=== PATIENT | female | born 1995 | race Caucasian/White ===

== ENCOUNTER 2018-08-12 15:30 | Outpatient (REF) | payer OTHER, SELFPAY | END 2018-08-12 15:50 | LOC: NCHCN 15:30 | PROVIDERS: PCP Physician Assistant Medical; Visit Provider Specialist/Technologist Athletic Trainer | DX: J02.9 Acute pharyngitis, unspecified (principal) | CPT/HCPCS: 87070 ==

== ENCOUNTER 2018-11-30 11:39 | Emergency (ER) | payer OTHER, SELFPAY ==
[2018-11-30 11:50] VITALS: BP 105/63; PULSE 92; RESP 18; TEMP 36.4; O2SAT 98
--- NOTE | 2018-11-30 12:32 | ED.GENADUL_ITS ---
Discharge Plan Disposition Patient Disposition: HOME Discharge Details Chief Complaint: Sorethroat Clinical Impression: URI (upper respiratory infection), Acute streptococcal pharyngitis Reason For Visit: swollen throat Primary Care Provider: Mane Story ED Provider: Enrique Locke Home Meds and New Rx's Prescriptions: Continued mesalamine [Lialda] 1.2 GM tablet,delayed release (DR/EC) 1.2 gm PO HS RF: 0 etonogestrel-ethinyl estradiol [NuvaRing] 1 EACH ring 1 ea VG once monthly Qty: 3 RF: 4 Discharge Instructions Instructions: Strep Throat (ED), Tonsillitis (ED) Additional Instructions: Please use over the counter throat lozenges. Follow-up with your doctor. Call Sunday to arrange follow-up. Return to the ER immediately if you have any worsening or new concerning symptoms. Stand Alone Forms: Work Release Referrals: Mane Stoyr PA [Primary Care Provider] - Discharge Data Discharge Date/Time-TO BE ENTERED AT DEPARTURE: 11/30/18 13:26 Medical Decision Making 12:39 --23-year-old female with history of ulcerative colitis controlled with mesalamine, here with posterior oropharyngeal swelling and discomfort since this morning. Recent cough and sinus congestion. Airway intact. Mild swelling noted on exam with erythema. Suspect pharyngitis versus irritation related to upper respiratory tract infection. Plan to treat with decadron PO. Rapid strep test pending. 13:19 --rapid strep test positive. Patient has allergy to amoxicillin noted to be diarrhea. Plan to treat with clindamycin. Initial dose was administered here. I encouraged her to follow-up with her primary care physician. Usual and customary discharge instructions were provided. HPI General Mode of arrival: ambulatory . Date/Time Provider Initiated Documentation: 11/30/18 12:20 . Limitations to Documentation: no limitations . Information obtained by: patient . HPI Narrative: 23-year-old female with history of ulcerative colitis presents with chief complaint of throat discomfort. Patient notes some mild discomfort and feeling like her throat is swollen. This started this morning and has been persistent. Symptoms are moderate. Discomfort is bilateral. She has associated runny nose as well as cough over the past few days. She does note that when she was coughing she coughed up a few specks of blood recently. No shortness of breath. No chest pain. No recent abdominal pain. Related Data Home Medications Medication Instructions Recorded Confirmed mesalamine [Lialda] 1.2 gm PO HS 01/16/17 04/10/18 etonogestrel-ethinyl estradiol 1 ea VG once monthly #3 vag.ring 06/27/18 [NuvaRing] fluconazole 150 mg tablet 150 mg PO ONCE #1 tab 12/12/18 12/12/18 metronidazole 500 mg tablet 500 mg PO BID #14 tab 12/12/18 12/12/18 Previous Rx's Medication Instructions Recorded etonogestrel-ethinyl estradiol 1 ea VG once monthly #3 vag.ring 06/27/18 [NuvaRing] fluconazole 150 mg tablet 150 mg PO ONCE #1 tab 12/12/18 metronidazole 500 mg tablet 500 mg PO BID #14 tab 12/12/18 Allergies Allergy/AdvReac Type Severity Reaction Status Date / Time amoxicillin [Amoxicillin] AdvReac Intermediate Diarrhea Unverified 12/12/18 08:05 General Stated Complaint: Sorethroat MCKAY: 3 Review of Systems Constitutional Denies fever(s) and Denies headache(s) ENT Reports as per HPI, Denies headache(s), Denies hoarseness, Denies mouth pain, Reports nasal congestion, Reports nasal obstruction, Denies neck pain, Reports post nasal drip and Denies tongue swelling Cardiovascular Denies chest pain Respiratory Reports as per HPI Musculoskeletal Denies neck pain Neurologic Denies headache(s) Allergic/Immunologic Denies tongue swelling PFSH Medical History Obesity, Class III, BMI 40-49.9 (morbid obesity) PCOS (polycystic ovarian syndrome) Trichomonas vaginalis (TV) infection Social History Smoking/Tobacco Use Status: Never Exam Const General: cooperative and no acute distress HENMT Head: normocephalic and atraumatic Mouth: moist mucous membranes Throat: uvula midline, no peritonsillar masses, posterior oropharynx abnormal edema and erythema; no cobblstoning and no exudates, postnasal drainage and uvular edema (mild) Other: no trismus, nl voice Eyes Conjunctivae: normal conjunctivae Sclera: normal sclerae EOM: EOM intact bilaterally Neck Neck: trachea midline and supple Resp Auscultation: clear to auscultation bilaterally, no rales, no rhonchi and no wheezes Cardio Jugular venous pressure: no JVD Rate: regular rate and not tachycardic Rhythm: regular rhythm Skin General skin exam: no rashes or lesions noted Neuro General: alert, awake, oriented x3 and tone normal Extrem General: no edema Psych Appearance: grossly normal Mental Status: mental status grossly normal Speech and Movement: speech and movement normal Course Vital Signs Temperature 36.4 C L 11/30/18 11:50 Pulse 92 H 11/30/18 11:50 Respiratory Rate 18 11/30/18 11:50 Blood Pressure 105/63 11/30/18 11:50 Pulse Oximetry 98 11/30/18 11:50 Temperature 36.4 C L 11/30/18 11:50 Temperature Source Temporal Artery Scan 11/30/18 11:50 Pulse 92 H 11/30/18 11:50 Respiratory Rate 18 11/30/18 11:50 Respiratory Effort 11/30/18 11:56 Blood Pressure 105/63 11/30/18 11:50 Blood Pressure Position Sitting 11/30/18 11:50 Pulse Oximetry 98 11/30/18 11:50 Oxygen Delivery Method Room Air 11/30/18 11:50 Oxygen Flow Rate 0 11/30/18 11:50 Pain Level 0 11/30/18 11:50 Lab/Test Results Lab/Test Results: POC- Test(urine) Negative
[2018-11-30] MEDS: Dexamethasone 10 MG/ML VIAL IVP (12:47)
[2018-11-30] MEDS: Clindamycin 150 MG CAP 300 MG PO (13:21)
== END 2018-11-30 13:26 | disposition home or self-care (01) ==
PROVIDERS: Emergency Provider Student in an Organized Health Care Education/Training Program; PCP Physician Assistant Medical
DX: J02.0 Streptococcal pharyngitis (principal)
CPT/HCPCS: 81025; 87880; 96374; 99284; J1100

== ENCOUNTER 2018-12-12 11:44 | Outpatient (REF) | payer OTHER, SELFPAY ==
[2018-12-13 14:54] LABS: Chlamydia Result Negative; GC Result Negative; Specimen Description CERVIX
== END 2018-12-12 12:04 ==
LOC: LBN 11:44
PROVIDERS: PCP Physician Assistant Medical; Visit Provider Obstetrics & Gynecology Gynecology
DX: N76.0 Acute vaginitis (principal); Z11.3 Encounter for screening for infections with a predominantly sexual mode of transmission
CPT/HCPCS: 87491; 87591

== ENCOUNTER 2019-04-01 08:51 | Emergency (ER) | payer OTHER, SELFPAY ==
[2019-04-01 08:57] VITALS: BP 132/80; PULSE 106; RESP 16; TEMP 36.8; O2SAT 98
--- NOTE | 2019-04-01 08:57 | W.ED.GENAD ---
Discharge Plan Disposition Patient Disposition: HOME Condition: Fair Discharge Details Chief Complaint: Sorethroat Clinical Impression: URI (upper respiratory infection), Acute pharyngitis, Strep pharyngitis Primary Care Provider: Mane Story ED Provider: Abena Huggins Home Meds and New Rx's Prescriptions: New lidocaine HCl [Lidocaine Viscous] 2 % solution 15 ml MM BID-QID PRN (Reason: mouth pain) Qty: 100 RF: 0 benzonatate [Tessalon Perles] 100 mg capsule 100 mg PO TID PRN (Reason: cough) Qty: 14 RF: 0 clindamycin HCl 300 mg capsule 300 mg PO TID Qty: 30 RF: 0 Continued mesalamine [Lialda] 1.2 GM tablet,delayed release (DR/EC) 1.2 gm PO HS RF: 0 NuvaRing 1 EACH ring 1 ea VG once monthly Qty: 3 RF: 4 Discharge Instructions Instructions: Pharyngitis (ED), Upper Respiratory Infection (ED) Additional Instructions: Your rapid strep testing was positive. However, as you are carrier if this may be misleading. We have decided on the watch and wait approach. You have been prescribed clindamycin to begin if symptoms are not improving or worsen over the next 48 hours. If you begin the antibiotics, please take the entire course even if symptoms improve. Please encourage hydration. Tylenol and ibuprofen as needed for discomfort. Viscous lidocaine may be of benefit to help with the sore throat, please take as prescribed. Tessalon Perles as prescribed to help with cough. You may use honey and/or lozenges to help with sore throat and cough. If you develop difficulty breathing, inability to stay hydrated, shortness of breath or the new/worsening symptoms please seek care urgently once again. Please follow-up with primary care in 1 week if not improving Stand Alone Forms: Work Release Referrals: Mane Story PA [Primary Care Provider] - Medical Decision Making Patient 23-year-old female presenting today with chief complaint of URI. She reports that for the past 2 days she has had sore throat, bilateral ear pain, productive cough and nasal congestion. Patient reports that she is a strep carrier. Is concerned that she has acute streptococcal pharyngitis. Has been trying to hydrate but states that she has pain with swallowing. Has not taken anything as of yet to help with her discomfort. On exam, she appears nontoxic. She is slightly tachycardic at 106. She does appear slightly dry. She is afebrile. Her posterior oropharynx is significant for bilateral tonsillar erythema, swelling and exudate. Given the level of swelling, I feel that steroids are appropriate as this will likely help with her discomfort. We will give oral dexamethasone. Lungs clear on exam. Rapid strep positive, UPT negative. Discussed with patietn that her + strep may be associated with her carrier status. Advised that cough does not typically go with acute strep. We discussed risks/benefits of antibitocis and will follow watch and wait approach. She was given Dexamethasone, ibuprofen, tylneol and viscous lidocaine while here. Will also give tessalon perles for cough which she states is worse at night. She was given strict return precautions. Advised f/u with PCP if not improving over the next week. All questions and concerns were addressed, she is in agreemetn with this plan. HPI General Mode of arrival: ambulatory. Date/Time Provider Initiated Documentation: 04/01/19 08:54. Limitations to Documentation: no limitations. Information obtained by: patient and RN notes reviewed. History of Present Illness 23 year old F presents to the emergency department with the chief complaint of sore throat, described as severe, with intensity rated at 9. Quality is described as burning, and is localized to the mouth. Patient reports no radiation. Patient started experiencing this day(s) (2) and it has been constant. No relieving factors improve symptom(s), Eating worsens symptoms . Patient notes cough, headaches and loss of appetite; denies chest pain, fever/chills, malaise, nausea/vomiting, rash, shortness of breath, syncope and weakness. Patient did receive the following treatments prior to arrival, NSAID Related Data Home Medications Medication Instructions Recorded Confirmed mesalamine [Lialda] 1.2 gm PO HS 01/16/17 04/01/19 NuvaRing 1 ea VG once monthly #3 vag.ring 06/27/18 04/01/19 benzonatate [Tessalon Perles] 100 mg PO TID PRN #14 cap 04/01/19 clindamycin HCl 300 mg PO TID #30 cap 04/01/19 lidocaine HCl [Lidocaine Viscous] 15 ml MM BID-QID PRN #100 ml 04/01/19 Previous Rx's Medication Instructions Recorded NuvaRing 1 ea VG once monthly #3 vag.ring 06/27/18 benzonatate [Tessalon Perles] 100 mg PO TID PRN #14 cap 04/01/19 clindamycin HCl 300 mg PO TID #30 cap 04/01/19 lidocaine HCl [Lidocaine Viscous] 15 ml MM BID-QID PRN #100 ml 04/01/19 Allergies Allergy/AdvReac Type Severity Reaction Status Date / Time amoxicillin [Amoxicillin] AdvReac Intermediate Diarrhea Unverified 04/01/19 09:32 General MCKAY: 3 Review of Systems Constitutional Reports as per HPI, Denies chills, Reports fatigue, Denies fever(s), Reports headache(s), Denies lethargy and Reports poor appetite Eyes Reports as per HPI, Denies eye discharge and Denies irritation ENT Reports as per HPI, Denies change in voice, Denies ear discharge, Reports otalgia, Reports facial pain (left maxillary sinus), Reports headache(s), Denies hearing loss, Reports nasal congestion, Reports nasal discharge, Reports sinus pain, Reports sore throat and Denies tongue swelling Cardiovascular Reports as per HPI, Denies chest pain, Denies dyspnea and Denies dyspnea on exertion Respiratory Reports as per HPI, Reports chest congestion, Reports cough (productive cough), Denies hemoptysis, Denies dyspnea and Denies dyspnea on exertion Gastrointestinal Reports as per HPI, Denies abdominal pain, Denies change in bowel habits, Denies nausea and Denies vomiting Genitourinary Denies abnormal menses (currently menstruating) Integumentary/Breasts Reports as per HPI and Denies rash Neurologic Reports as per HPI and Reports headache(s) Endocrine Reports fatigue Allergic/Immunologic Denies tongue swelling [facility] Medical History Ulcerative colitis (Chronic) PCOS (polycystic ovarian syndrome) (Chronic) Trichomonas vaginalis (TV) infection (Resolved) Contraception (Chronic 01/16/17) Irregular menses (Resolved 01/16/17) Neoplasm of unspecified nature of bone, soft tissue, and skin (Resolved 05/23/17) Trichomonas vaginalis infection (Resolved 01/17/18) Uses vaginal contraceptive ring (Chronic) Menorrhagia (Resolved 01/16/17) Obesity, Class III, BMI 40-49.9 (morbid obesity) (Resolved) Social History Smoking/Tobacco Use Status: Current every day Tobacco Type: cigarettes Drug use: Never Do you feel safe in your relationship?: Yes Additional Social history: Mother is Dolly Zaidi who works at the [employer]. Female Reproductive History Menstrual control method: vaginal ring Exam Const General: cooperative, healthy appearing, comfortable, no acute distress, well developed and well groomed Nutritional Appearance: well nourished and overweight Orientation: alert and awake [facility] Head: normal to inspection, normocephalic and atraumatic Ears: hearing grossly normal bilaterally, external ears normal and TM's normal bilaterally General nose exam: external nose normal and nares normal Face and sinus: normal facial exam, face symmetric and sinus tenderness maxillary (left) Mouth: lip normal, tongue normal, oropharynx normal, mucous membranes dry (patient appears dry), no muffled voice, no trismus and No restricted motion Teeth and gingiva: dentition normal Throat: uvula midline, abnormal tonsil bilaterally erythema, exudates and hypertrophy 3+, no peritonsillar masses, uvula not displaced and no uvular edema Eyes General: appearance normal, both eyes and all related structures Neck Neck: normal visual inspection, full ROM, no meningeal signs, trachea midline, lymphadenopathy, negative Brudzinski's sign and negative Kernig's sign Resp Effort & Inspection: normal respiratory effort, able to speak in complete sentences and no respiratory distress Auscultation: clear to auscultation bilaterally, no rales, no rhonchi and no wheezes Cardio Rate: regular rate Rhythm: regular rhythm Heart Sounds: S1 normal and S2 normal Back/Spine/Pelvis Cervical Spine: normal cervical lordosis and cervical ROM normal Skin General skin exam: no rashes or lesions noted Neuro General: alert and awake Cognition: normal cognition Speech: speech normal Gait: normal gait Psych Appearance: grossly normal and well kempt Mental Status: mental status grossly normal Speech and Movement: speech and movement normal
--- NOTE | 2019-04-01 09:14 | ED.GENADUL_ITS ---
Discharge Plan Disposition Patient Disposition: HOME Condition: Fair Discharge Details Chief Complaint: Sorethroat Clinical Impression: URI (upper respiratory infection), Acute pharyngitis, Strep pharyngitis Primary Care Provider: Mane Story ED Provider: Abena Huggins Home Meds and New Rx's Prescriptions: New lidocaine HCl [Lidocaine Viscous] 2 % solution 15 ml MM BID-QID PRN (Reason: mouth pain) Qty: 100 RF: 0 benzonatate [Tessalon Perles] 100 mg capsule 100 mg PO TID PRN (Reason: cough) Qty: 14 RF: 0 clindamycin HCl 300 mg capsule 300 mg PO TID Qty: 30 RF: 0 Continued mesalamine [Lialda] 1.2 GM tablet,delayed release (DR/EC) 1.2 gm PO HS RF: 0 NuvaRing 1 EACH ring 1 ea VG once monthly Qty: 3 RF: 4 Discharge Instructions Instructions: Pharyngitis (ED), Upper Respiratory Infection (ED) Additional Instructions: Your rapid strep testing was positive. However, as you are carrier if this may be misleading. We have decided on the watch and wait approach. You have been prescribed clindamycin to begin if symptoms are not improving or worsen over the next 48 hours. If you begin the antibiotics, please take the entire course even if symptoms improve. Please encourage hydration. Tylenol and ibuprofen as needed for discomfort. Viscous lidocaine may be of benefit to help with the sore throat, please take as prescribed. Tessalon Perles as prescribed to help with cough. You may use honey and/or lozenges to help with sore throat and cough. If you develop difficulty breathing, inability to stay hydrated, shortness of breath or the new/worsening symptoms please seek care urgently once again. Please follow-up with primary care in 1 week if not improving Stand Alone Forms: Work Release Referrals: Mane Story PA [Primary Care Provider] - Medical Decision Making Patient 23-year-old female presenting today with chief complaint of URI. She reports that for the past 2 days she has had sore throat, bilateral ear pain, productive cough and nasal congestion. Patient reports that she is a strep carrier. Is concerned that she has acute streptococcal pharyngitis. Has been trying to hydrate but states that she has pain with swallowing. Has not taken anything as of yet to help with her discomfort. On exam, she appears nontoxic. She is slightly tachycardic at 106. She does appear slightly dry. She is afebrile. Her posterior oropharynx is significant for bilateral tonsillar erythema, swelling and exudate. Given the level of swelling, I feel that steroids are appropriate as this will likely help with her discomfort. We will give oral dexamethasone. Lungs clear on exam. Rapid strep positive, UPT negative. Discussed with patietn that her + strep may be associated with her carrier status. Advised that cough does not typically go with acute strep. We discussed risks/benefits of antibitocis and will follow watch and wait approach. She was given Dexamethasone, ibuprofen, tylneol and viscous lidocaine while here. Will also give tessalon perles for cough which she states is worse at night. She was given strict return precautions. Advised f/u with PCP if not improving over the next week. All questions and concerns were addressed, she is in agreemetn with this plan. HPI General Mode of arrival: ambulatory . Date/Time Provider Initiated Documentation: 04/01/19 08:54 . Limitations to Documentation: no limitations . Information obtained by: patient and RN notes reviewed . History of Present Illness 23 year old F presents to the emergency department with the chief complaint of sore throat, described as severe, with intensity rated at 9. Quality is described as burning, and is localized to the mouth. Patient reports no radiation. Patient started experiencing this day(s) (2) and it has been constant. No relieving factors improve symptom(s), Eating worsens symptoms . Patient notes cough, headaches and loss of appetite; denies chest pain, fever/chills, malaise, nausea/vomiting, rash, shortness of breath, syncope and weakness. Patient did receive the following treatments prior to arrival, NSAID Related Data Home Medications Medication Instructions Recorded Confirmed mesalamine [Lialda] 1.2 gm PO HS 01/16/17 04/01/19 NuvaRing 1 ea VG once monthly #3 vag.ring 06/27/18 04/01/19 benzonatate [Tessalon Perles] 100 mg PO TID PRN #14 cap 04/01/19 clindamycin HCl 300 mg PO TID #30 cap 04/01/19 lidocaine HCl [Lidocaine Viscous] 15 ml MM BID-QID PRN #100 ml 04/01/19 Previous Rx's Medication Instructions Recorded NuvaRing 1 ea VG once monthly #3 vag.ring 06/27/18 benzonatate [Tessalon Perles] 100 mg PO TID PRN #14 cap 04/01/19 clindamycin HCl 300 mg PO TID #30 cap 04/01/19 lidocaine HCl [Lidocaine Viscous] 15 ml MM BID-QID PRN #100 ml 04/01/19 Allergies Allergy/AdvReac Type Severity Reaction Status Date / Time amoxicillin [Amoxicillin] AdvReac Intermediate Diarrhea Unverified 04/01/19 09:32 General MCKAY: 3 Review of Systems Constitutional Reports as per HPI, Denies chills, Reports fatigue, Denies fever(s), Reports headache(s), Denies lethargy and Reports poor appetite Eyes Reports as per HPI, Denies eye discharge and Denies irritation ENT Reports as per HPI, Denies change in voice, Denies ear discharge, Reports otalgia, Reports facial pain (left maxillary sinus), Reports headache(s), Denies hearing loss, Reports nasal congestion, Reports nasal discharge, Reports sinus pain, Reports sore throat and Denies tongue swelling Cardiovascular Reports as per HPI, Denies chest pain, Denies dyspnea and Denies dyspnea on exertion Respiratory Reports as per HPI, Reports chest congestion, Reports cough (productive cough), Denies hemoptysis, Denies dyspnea and Denies dyspnea on exertion Gastrointestinal Reports as per HPI, Denies abdominal pain, Denies change in bowel habits, Denies nausea and Denies vomiting Genitourinary Denies abnormal menses (currently menstruating) Integumentary/Breasts Reports as per HPI and Denies rash Neurologic Reports as per HPI and Reports headache(s) Endocrine Reports fatigue Allergic/Immunologic Denies tongue swelling [facility] Medical History Ulcerative colitis (Chronic) PCOS (polycystic ovarian syndrome) (Chronic) Trichomonas vaginalis (TV) infection (Resolved) Contraception (Chronic 01/16/17) Irregular menses (Resolved 01/16/17) Neoplasm of unspecified nature of bone, soft tissue, and skin (Resolved 05/23/17) Trichomonas vaginalis infection (Resolved 01/17/18) Uses vaginal contraceptive ring (Chronic) Menorrhagia (Resolved 01/16/17) Obesity, Class III, BMI 40-49.9 (morbid obesity) (Resolved) Social History Smoking/Tobacco Use Status: Current every day Tobacco Type: cigarettes Drug use: Never Do you feel safe in your relationship?: Yes Additional Social history: Mother is Dolly Zaidi who works at the [employer]. Female Reproductive History Menstrual control method: vaginal ring Exam Const General: cooperative, healthy appearing, comfortable, no acute distress, well developed and well groomed Nutritional Appearance: well nourished and overweight Orientation: alert and awake [facility] Head: normal to inspection, normocephalic and atraumatic Ears: hearing grossly normal bilaterally, external ears normal and TM's normal bilaterally General nose exam: external nose normal and nares normal Face and sinus: normal facial exam, face symmetric and sinus tenderness maxillary (left) Mouth: lip normal, tongue normal, oropharynx normal, mucous membranes dry (patient appears dry), no muffled voice, no trismus and No restricted motion Teeth and gingiva: dentition normal Throat: uvula midline, abnormal tonsil bilaterally erythema, exudates and hypertrophy 3+, no peritonsillar masses, uvula not displaced and no uvular edema Eyes General: appearance normal, both eyes and all related structures Neck Neck: normal visual inspection, full ROM, no meningeal signs, trachea midline, lymphadenopathy, negative Brudzinski's sign and negative Kernig's sign Resp Effort & Inspection: normal respiratory effort, able to speak in complete sentences and no respiratory distress Auscultation: clear to auscultation bilaterally, no rales, no rhonchi and no wheezes Cardio Rate: regular rate Rhythm: regular rhythm Heart Sounds: S1 normal and S2 normal Back/Spine/Pelvis Cervical Spine: normal cervical lordosis and cervical ROM normal Skin General skin exam: no rashes or lesions noted Neuro General: alert and awake Cognition: normal cognition Speech: speech normal Gait: normal gait Psych Appearance: grossly normal and well kempt Mental Status: mental status grossly normal Speech and Movement: speech and movement normal
[2019-04-01] MEDS: Lidocaine 2% Viscous 15 ML CUP PO (09:20)
[2019-04-01] MEDS: Dexamethasone 10 MG/ML VIAL PO (09:20)
[2019-04-01] MEDS: Acetaminophen 325 MG TAB 650 MG PO (09:20)
[2019-04-01] MEDS: Ibuprofen 600 MG TAB PO (09:20)
== END 2019-04-01 09:40 | disposition home or self-care (01) ==
PROVIDERS: Emergency Provider Physician Assistant; PCP Physician Assistant Medical
DX: J02.0 Streptococcal pharyngitis (principal); H92.03 Otalgia, bilateral; R05 Cough; F17.210 Nicotine dependence, cigarettes, uncomplicated
CPT/HCPCS: 81025; 87880; 99283; J1100

== ENCOUNTER 2019-04-23 14:08 | Emergency (ER) | payer OTHER, SELFPAY ==
[2019-04-23 14:13] VITALS: BP 124/75; PULSE 90; RESP 20; TEMP 36.8; O2SAT 99
[2019-04-23 14:24] LABS: Bilirubin Negative (Negative); Blood Negative (Negative); Clarity Clear; Glucose Negative (Negative); Ketones Trace mg/dL (Negative); Leukocyte Esterase Negative (Negative); Nitrite Negative (Negative); Specific Gravity >= 1.030 (1.005-1.025); Urobilinogen 0.2 EU/dL (Up TO 0.2); pH 5.5 (5-8)
--- NOTE | 2019-04-23 15:16 | DI.US_ITS ---
SYMPTOM/DIAGNOSIS: LLQ ABD PAIN, F/O OVARIAN CYST/TORSION PELVIC ULTRASOUND: A transabdominal and transvaginal examination was carried out. The uterus measures 6.8 cm in length x 3.1 cm height x 4.3 cm in width with an endometrial stripe thickness of 8 mm. The right ovary measures 3.6 x 2.5 x 3.5 cm. The left ovary 2.6 x 2.3 x 2.7 cm. Follicles are noted in both ovaries. There is no evidence of free fluid in the pelvis. There is incidental note made of question splenomegaly which measures up to 14.4 cm SUMMARY: Normal pelvic ultrasound. Question splenomegaly.
[2019-04-23] MEDS: Ketorolac 30 MG/ML VIAL IVP (15:30)
[2019-04-23 15:34] LABS: Abs Immature Grans 0.01 k/cumm (0.0-0.09); Absolute Basophil Count 0.03 k/cumm (0.0-0.2); Absolute Eosinophil Count 0.06 k/cumm (0.0-0.7); Absolute Lymphocyte Count 3.41 k/cumm (1.2-3.4); Absolute Monocyte Count 0.66 k/cumm (0.11-0.7); Basophils % 0.4; Eosinophils % 0.9; HCT 40.7 % (36.0-46.0); HGB 14.1 g/dL (12.0-15.5); Immature Grans % 0.1; Lymphocytes % 49.6; Mean Corp. HGB Concentration 34.6 g/dL (32.0-36.0); Mean Corpuscular Hemoglobin 30.7 pg (27.0-33.0); Mean Corpuscular Volume 88.5 fL (80-95); Mean Platelet Volume 10.8 fL (8.0-11.0); Monocytes % 9.6; Neutrophils % 39.4; Platelet Count 248 x1000/uL (130-400); RBC Distribution Width 14.7 % (11.7-14.6); White Blood Cell Count 6.87 k/cumm (4.4-10.8)
[2019-04-23 15:58] LABS: ALT 32 U/L (12-78); AST 16 U/L (15-37); Albumin 3.8 g/dL (3.4-5.0); Alkaline Phosphatase 98 U/L (46-116); Anion Gap 9.7 mmol/L (3-11); BUN 7 mg/dL (7-18); Bilirubin, Total 0.4 mg/dL (0.2-1.0); CO2 26.3 mmol/L (21.0-32.0); CREATININE 0.81 mg/dL (0.55-1.02); Calcium 8.9 mg/dL (8.5-10.1); Chloride 107 mmol/L (98-107); Glucose 70 mg/dL (70-100); Lipase 234 U/L (73-393); Potassium 3.5 mmol/L (3.5-5.1); Sodium 143 mmol/L (136-145); Total Protein 7.7 g/dL (6.4-8.2)
--- NOTE | 2019-04-23 16:33 | DI.VRAD_ITS ---
EXAM: US Pelvis Complete, Transabdominal and US Pelvis, Transvaginal EXAM DATE/TIME: 04/23/2019 4:04 PM CLINICAL HISTORY: 23 years old, female; Other: Llq pain; Patient HX: Rule out ovarian cyst/ torsion TECHNIQUE: Imaging protocol: Real-time transabdominal and transvaginal pelvic ultrasound (complete) with image documentation. Transvaginal imaging was used for better evaluation of the endometrium and adnexa. COMPARISON: No relevant prior studies available. FINDINGS: Uterus/cervix: Uterus measures 6.8 x 3.1 x 4.3 cm. Endometrium measures 0.8 cm. Right adnexa: Right ovary measures 3.6 x 2.5 x 3.5 cm. Normal blood flow. Left adnexa: Left ovary measures 2.6 x 2.3 x 2.7 cm. Normal blood flow. Free fluid: None. Bladder: Normal. IMPRESSION: Normal pelvic ultrasound. No cysts or masses. No torsion. Dictated and Authenticated by: Cem Guadalupe MD. Ordering:MARSHALL Connor MD
--- NOTE | 2019-04-23 16:43 | ED.GENADUL_ITS ---
Discharge Plan Disposition Patient Disposition: HOME Condition: Improving Discharge Details Chief Complaint: Abd Prob Clinical Impression: Abdominal pain Primary Care Provider: Mane Story ED Provider: Geeta Ronquillo Home Meds and New Rx's Prescriptions: New ibuprofen 600 mg tablet 600 mg PO QID PRN (Reason: pain) Qty: 20 RF: 0 Continued mesalamine [Lialda] 1.2 GM tablet,delayed release (DR/EC) 1.2 gm PO HS RF: 0 NuvaRing 1 EACH ring 1 ea VG once monthly Qty: 3 RF: 4 lidocaine HCl [Lidocaine Viscous] 2 % solution 15 ml MM BID-QID PRN (Reason: mouth pain) Qty: 100 RF: 0 benzonatate [Tessalon Perles] 100 mg capsule 100 mg PO TID PRN (Reason: cough) Qty: 14 RF: 0 clindamycin HCl 300 mg capsule 300 mg PO TID Qty: 30 RF: 0 Discharge Instructions Instructions: Abdominal Pain (ED) Additional Instructions: Alternate tylenol and motrin as needed and directed for pain. Follow up with your primary care doctor in 1 week for re-evaluation. Return to the emergency department if you develop any worsening or new concerning symptoms. Discharge Data Discharge Date/Time-TO BE ENTERED AT DEPARTURE: 04/23/19 17:20 Discharge Physician: Geeta Ronquillo Medical Decision Making 23-year-old female with a history of ulcerative colitis who presents with left lower quadrant abdominal pain for the past 2 days. There is a h/o PCOS in chart but pt denies this. She denies known exposure to STDs or vaginal discharge. test negative. Vitals within normal limits. She has mild to moderate tenderness to palpation of the left lower quadrant. Abd soft w/o rigidity or guarding. No CVAT. Differential diagnoses includes ovarian cyst, gastroenteritis, pancreatitis, UTI, UC flare. Will check screening labs, UA, and pelvic US and give a dose of toradol and reassess. Discussed with pt that due to soft, mildly tender abdomen, can start with US at this time and the reassess whether to proceed with CT. Labs and imaging reviewed and unremarkable. Normal WBC, electrolytes, lipase, no infection on UA. Pelvis US negative. Pt feels much better and is requesting to go home. Reassessment of abdomen notes significant improvement, nontender. Discussed with pt that as her symptoms improved, labs unremarkable and abdomen nontender, a CT may not be indicated at this time and pt agrees and would rather hold on CT. She would like to f/u with her pcp and return to the ER with any worsening symptoms. Medical Records Medical records reviewed: Yes I reviewed the patient's medical records. Lab Data Lab results reviewed: Yes I reviewed the patient's lab results. Laboratory Tests Range/Units 04/23/19 04/23/19 04/23/19 14:20 14:30 14:30 WBC (4.4-10.8) k/cumm 6.87 RBC (4.00-5.20) m/cumm 4.60 Hgb (12.0-15.5) g/dL 14.1 Hct (36.0-46.0) % 40.7 MCV (80-95) fL 88.5 MCH (27.0-33.0) pg 30.7 MCHC (32.0-36.0) g/dL 34.6 RDW (11.7-14.6) % 14.7 H Plt Count (130-400) x1000/uL 248 MPV (8.0-11.0) fL 10.8 Immature Gran % 0.1 Neutrophils % 39.4 Lymphocytes % 49.6 Monocytes % 9.6 Eosinophils % 0.9 Basophils % 0.4 Absolute Neutrophils (1.2-6.7) k/cumm 2.70 Absolute Lymphocytes (1.2-3.4) k/cumm 3.41 H Absolute Monocytes (0.11-0.7) k/cumm 0.66 Absolute Eosinophils (0.0-0.7) k/cumm 0.06 Absolute Basophils (0.0-0.2) k/cumm 0.03 Sodium (136-145) mmol/L 143 Potassium (3.5-5.1) mmol/L 3.5 Chloride (98-107) mmol/L 107 Carbon Dioxide (21.0-32.0) mmol/L 26.3 Anion Gap (3-11) mmol/L 9.7 BUN (7-18) mg/dL 7 Creatinine (0.55-1.02) mg/dL 0.81 Estimated GFR/1.73 m2 (mL/min/1.73m2) >= 60.00 Glucose (70-100) mg/dL 70 Calcium (8.5-10.1) mg/dL 8.9 Total Bilirubin (0.2-1.0) mg/dL 0.4 AST (15-37) U/L 16 ALT (12-78) U/L 32 Alkaline Phosphatase (46-116) U/L 98 Total Protein (6.4-8.2) g/dL 7.7 Albumin (3.4-5.0) g/dL 3.8 Lipase (73-393) U/L 234 Urine Color (Yellow) Yellow Urine Clarity Clear Urine pH (5-8) 5.5 Ur Specific Hammon (1.005-1.025) >= 1.030 H Urine Protein (Negative) mg/dL Negative Urine Ketones (Negative) mg/dL Trace H Urine Blood (Negative) Negative Urine Nitrite (Negative) Negative Urine Bilirubin (Negative) Negative Urine Urobilinogen (Up TO 0.2) EU/dL 0.2 Ur Leukocyte Esterase (Negative) Negative Urine Glucose (Negative) mg/dL Negative HPI General Mode of arrival: ambulatory . Date/Time Provider Initiated Documentation: 04/23/19 14:18 . Limitations to Documentation: no limitations . Information obtained by: patient . HPI Narrative: Pt is a 23yo F w/ a h/o ulcerative colitis who presents to the ED w/ a c/o LLQ abd pain for the past 2 days. She describes the pain as constant, sharp, without radiation and currently 8/10. She admits to nausea but denies any fever, vomiting, diarrhea, urinary symptoms, vaginal discharge. She states she is sexually active with 1 partner but denies any known exposure to STDs, does not use protection and denies vaginal lesions. She states she has not taken any medicine for pain. Related Data Home Medications Medication Instructions Recorded Confirmed mesalamine [Lialda] 1.2 gm PO HS 01/16/17 04/01/19 NuvaRing 1 ea VG once monthly #3 vag.ring 06/27/18 04/01/19 benzonatate [Tessalon Perles] 100 mg PO TID PRN #14 cap 04/01/19 clindamycin HCl 300 mg PO TID #30 cap 04/01/19 lidocaine HCl [Lidocaine Viscous] 15 ml MM BID-QID PRN #100 ml 05/28/19 ibuprofen 600 mg PO QID PRN #20 tab 04/23/19 Previous Rx's Medication Instructions Recorded NuvaRing 1 ea VG once monthly #3 vag.ring 06/27/18 benzonatate [Tessalon Perles] 100 mg PO TID PRN #14 cap 04/01/19 clindamycin HCl 300 mg PO TID #30 cap 04/01/19 lidocaine HCl [Lidocaine Viscous] 15 ml MM BID-QID PRN #100 ml 04/01/19 ibuprofen 600 mg PO QID PRN #20 tab 04/23/19 Allergies Allergy/AdvReac Type Severity Reaction Status Date / Time amoxicillin [Amoxicillin] AdvReac Intermediate Diarrhea Unverified 04/01/19 09 :32 General Stated Complaint: Abd Prob MCKAY: 3 Review of Systems Review of Systems All systems reviewed & are unremarkable except as noted in HPI and below Constitutional Reports as per HPI, Denies chills and Denies fever(s) Eyes Denies blurry vision ENT Denies dizziness, Denies sore throat and Denies throat swelling Cardiovascular Denies chest pain and Denies dyspnea Respiratory Denies cough and Denies dyspnea Gastrointestinal Reports abdominal pain, Denies diarrhea and Denies vomiting Genitourinary Denies hematuria and Denies dysuria Musculoskeletal Denies back pain and Denies numbness Integumentary/Breasts Denies lesions and Denies rash Neurologic Denies dizziness, Denies focal weakness and Denies numbness Allergic/Immunologic Denies throat swelling [facility] Social History Smoking/Tobacco Use Status: Current every day Tobacco Type: cigarettes Drug use: Never Do you feel safe in your relationship?: Yes Additional Social history: Mother is Dolly Zaidi who works at the [employer]. Female Reproductive History Menstrual control method: vaginal ring Exam Const General: cooperative, healthy appearing and no acute distress [facility] Head: normal to inspection Face and sinus: normal facial exam Eyes General: appearance normal, both eyes and all related structures Pupils: PERRL EOM: EOM intact bilaterally Neck Neck: normal visual inspection and No submandibular swelling Lymphatic: no lymphadenopathy noted Chest Chest: normal inspection of the chest and no tenderness Resp Effort & Inspection: normal respiratory effort and able to speak in complete sentences Auscultation: clear to auscultation bilaterally Cardio Rate: regular rate Rhythm: regular rhythm GI Inspection: normal to inspection Palpation: soft, not firm, not rigid and tender in the LLQ (mild-moderate) Auscultation: normal bowel sounds Back/Spine/Pelvis Thoracic/Lumbar Spine: thoracic and lumbar spine normal to inspection Pelvis: no pain with anterior-posterior compression Skin General skin exam: no rashes or lesions noted Neuro General: alert, awake and oriented x3 Cognition: normal cognition Speech: speech normal Motor: muscle tone normal throughout Sensory Exam: no sensory deficits noted Extrem General: normal to inspection, full ROM, normal capillary refill, no calf tenderness bilaterally and no edema Psych Appearance: grossly normal Mental Status: mental status grossly normal Speech and Movement: speech and movement normal Affect: normal affect Course Vital Signs Temperature 98.2 F 04/23/19 14:13 Pulse 90 04/23/19 14:13 Respiratory Rate 20 04/23/19 14:13 Blood Pressure 124/75 04/23/19 14:13 Pulse Oximetry 99 04/23/19 14:13 Temperature 98.2 F 04/23/19 14:13 Temperature Source Temporal Artery Scan 04/23/19 14:13 Pulse 90 04/23/19 14:13 Respiratory Rate 20 04/23/19 14:13 Respiratory Effort Non-Labored 04/23/19 14:21 Blood Pressure 124/75 04/23/19 14:13 Blood Pressure Position Sitting 04/23/19 14:13 Pulse Oximetry 99 04/23/19 14:13 Oxygen Delivery Method Room Air 04/23/19 14:13 Oxygen Flow Rate 0 04/23/19 14:13 Pain Level 8 04/23/19 14:13 Lab/Test Results Lab/Test Results: Laboratory Tests Range/Units 04/23/19 04/23/19 04/23/19 14:20 14:30 14:30 WBC (4.4-10.8) k/cumm 6.87 RBC (4.00-5.20) m/cumm 4.60 Hgb (12.0-15.5) g/dL 14.1 Hct (36.0-46.0) % 40.7 MCV (80-95) fL 88.5 MCH (27.0-33.0) pg 30.7 MCHC (32.0-36.0) g/dL 34.6 RDW (11.7-14.6) % 14.7 H Plt Count (130-400) x1000/uL 248 MPV (8.0-11.0) fL 10.8 Immature Gran % 0.1 Neutrophils % 39.4 Lymphocytes % 49.6 Monocytes % 9.6 Eosinophils % 0.9 Basophils % 0.4 Absolute Neutrophils (1.2-6.7) k/cumm 2.70 Absolute Lymphocytes (1.2-3.4) k/cumm 3.41 H Absolute Monocytes (0.11-0.7) k/cumm 0.66 Absolute Eosinophils (0.0-0.7) k/cumm 0.06 Absolute Basophils (0.0-0.2) k/cumm 0.03 Sodium (136-145) mmol/L 143 Potassium (3.5-5.1) mmol/L 3.5 Chloride (98-107) mmol/L 107 Carbon Dioxide (21.0-32.0) mmol/L 26.3 Anion Gap (3-11) mmol/L 9.7 BUN (7-18) mg/dL 7 Creatinine (0.55-1.02) mg/dL 0.81 Estimated GFR/1.73 m2 (mL/min/1.73m2) >= 60.00 Glucose (70-100) mg/dL 70 Calcium (8.5-10.1) mg/dL 8.9 Total Bilirubin (0.2-1.0) mg/dL 0.4 AST (15-37) U/L 16 ALT (12-78) U/L 32 Alkaline Phosphatase (46-116) U/L 98 Total Protein (6.4-8.2) g/dL 7.7 Albumin (3.4-5.0) g/dL 3.8 Lipase (73-393) U/L 234 Urine Color (Yellow) Yellow Urine Clarity Clear Urine pH (5-8) 5.5 Ur Specific Hammon (1.005-1.025) >= 1.030 H Urine Protein (Negative) mg/dL Negative Urine Ketones (Negative) mg/dL Trace H Urine Blood (Negative) Negative Urine Nitrite (Negative) Negative Urine Bilirubin (Negative) Negative Urine Urobilinogen (Up TO 0.2) EU/dL 0.2 Ur Leukocyte Esterase (Negative) Negative Urine Glucose (Negative) mg/dL Negative POC- Test(urine) Negative
== END 2019-04-23 17:20 | disposition home or self-care (01) ==
PROVIDERS: Emergency Provider Physician Assistant; PCP Physician Assistant Medical
DX: R10.32 Left lower quadrant pain (principal); K51.90 Ulcerative colitis, unspecified, without complications
CPT/HCPCS: 36415; 80053; 81025; 83690; 96361; 96374; 99284; 76830; 76856; 81003; 85025; J1885

== ENCOUNTER 2019-07-02 15:48 | Outpatient (REF) | payer OTHER, SELFPAY ==
[2019-07-02 17:16] LABS: *AMPHETAMINES SCREEN URINE Negative (Negative); *BARBITURATES SCREEN URINE Negative (Negative); *BENZODIAZEPINES SCREEN URINE Negative (Negative); Cannabinoids THC Negative (Negative); Cocaine Screen,Urine Negative (Negative); METHADONE URINE SCREEN Negative (Negative); OPIATES URINE SCREEN Negative (Negative)
[2019-07-02 17:17] LABS: Tricyclic Antidepressants Negative (Negative)
[2019-07-03 14:48] LABS: Chlamydia Result Negative; GC Result Negative; Specimen Description CERVIX
[2019-07-10 02:44] LABS: Buprenorphine Negative; Norbuprenorphine Negative
== END 2019-07-02 16:08 ==
LOC: LBN 15:48
PROVIDERS: PCP Physician Assistant Medical; Visit Provider Advanced Practice Midwife
DX: Z34.91 Encounter for supervision of normal pregnancy, unspecified, first trimester (principal); Z11.3 Encounter for screening for infections with a predominantly sexual mode of transmission
CPT/HCPCS: 80307; 87491; 87591; 87086

== ENCOUNTER 2019-09-15 01:12 | Outpatient (CLI) | payer OTHER, SELFPAY ==
--- NOTE | 2019-09-15 09:51 | DI.US_ITS ---
EXAM: US OB 2-3 TRIMESTER CLINICAL HISTORY: morphology us Z34.90 SUPERVISION NORMAL TECHNIQUE: Ultrasound performed using standard protocol. COMPARISON: US PELVIS TRANSVAGINAL from 04/23/2019 FINDINGS: There is a single living intrauterine gestation. The estimated sonographic age is 20 weeks 1 day. The fetus is in the breech position. Placenta is anterior without evidence of previa. Amniotic fluid appears within normal limits. No abnormalities are seen sonographically. heart rate is 141 beats per minute. IMPRESSION: Single living intrauterine gestation estimated sonographic age is 20 weeks 1 day.
== END 2019-09-15 01:32 ==
PROVIDERS: PCP Physician Assistant Medical; Visit Provider Obstetrics & Gynecology Gynecology
DX: Z34.92 Encounter for supervision of normal pregnancy, unspecified, second trimester (principal)
CPT/HCPCS: 76805

== ENCOUNTER 2019-10-16 09:14 | Outpatient (CLI) | payer OTHER, SELFPAY ==
[2019-10-16 13:00] LABS: Glucose,1 Hr (Glucola) 108 mg/dL (80-140)
[2019-10-17 16:10] LABS: Syphilis Total Ab w/Reflex Nonreactive (Nonreactive)
== END 2019-10-16 09:34 ==
PROVIDERS: PCP Physician Assistant Medical; Visit Provider Obstetrics & Gynecology Gynecology
DX: Z34.92 Encounter for supervision of normal pregnancy, unspecified, second trimester (principal)
CPT/HCPCS: 36415; 82950; 86787; 86803; 86900; 86901; 87340; 87389; 84443; 85025; 86762; 86780

== ENCOUNTER 2019-11-06 16:08 | Outpatient (REF) | payer OTHER, SELFPAY ==
[2019-11-06 14:31] LABS: *AMPHETAMINES SCREEN URINE Negative (Negative); *BARBITURATES SCREEN URINE Negative (Negative); *BENZODIAZEPINES SCREEN URINE Negative (Negative); Cannabinoids THC Negative (Negative); Cocaine Screen,Urine Negative (Negative); METHADONE URINE SCREEN Negative (Negative); OPIATES URINE SCREEN Negative (Negative)
[2019-11-06 14:33] LABS: Tricyclic Antidepressants Negative (Negative)
[2019-11-10 10:51] LABS: Buprenorphine Negative; Norbuprenorphine Negative
== END 2019-11-06 16:28 ==
LOC: LBN 16:08
PROVIDERS: PCP Physician Assistant Medical; Visit Provider Obstetrics & Gynecology
DX: Z34.93 Encounter for supervision of normal pregnancy, unspecified, third trimester (principal)
CPT/HCPCS: 80307; 87086

== ENCOUNTER 2019-11-15 07:49 | Outpatient (CLI) | payer OTHER, SELFPAY ==
[2019-11-15 11:01] LABS: Abs Immature Grans 0.03 k/cumm (0.0-0.09); Absolute Basophil Count 0.01 k/cumm (0.0-0.2); Absolute Eosinophil Count 0.06 k/cumm (0.0-0.7); Absolute Lymphocyte Count 2.51 k/cumm (1.2-3.4); Absolute Monocyte Count 0.83 k/cumm (0.11-0.7); Absolute Neutrophil Count 8.63 k/cumm (1.2-6.7); Basophils % 0.1; Eosinophils % 0.5; HCT 36.3 % (36.0-46.0); HGB 12.3 g/dL (12.0-15.5); Immature Grans % 0.2 %; Lymphocytes % 20.8; Mean Corp. HGB Concentration 33.9 g/dL (32.0-36.0); Mean Corpuscular Hemoglobin 30.5 pg (27.0-33.0); Mean Corpuscular Volume 90.1 fL (80-95); Mean Platelet Volume 10.8 fL (8.0-11.0); Monocytes % 6.9; Neutrophils % 71.5; Platelet Count 228 x1000/uL (130-400); RBC 4.03 m/cumm (4.00-5.20); RBC Distribution Width 13.5 % (11.7-14.6); White Blood Cell Count 12.07 k/cumm (4.4-10.8)
[2019-11-15 11:02] LABS: Glucose,1 Hr (Glucola) 109 mg/dL (80-140)
[2019-11-17 11:33] LABS: Hepatitis B Surface Ag Negative (Negative)
[2019-11-17 12:39] LABS: Hepatitis C Ab w Rflx HCV PCR Negative (Negative)
[2019-11-17 14:22] LABS: HIV-1/2 Ag & Ab Screen Negative (Negative)
[2019-11-17 15:44] LABS: Rubella IgG Ab (UVM) Positive (See Note); Varicella IgG Antibody Positive (See Note)
[2019-11-17 16:42] LABS: Syphilis Total Ab w/Reflex Nonreactive (Nonreactive)
== END 2019-11-15 08:09 ==
PROVIDERS: PCP Physician Assistant Medical; Visit Provider Obstetrics & Gynecology Gynecology
DX: Z34.91 Encounter for supervision of normal pregnancy, unspecified, first trimester (principal); Z11.4 Encounter for screening for human immunodeficiency virus [HIV]; Z11.59 Encounter for screening for other viral diseases; Z01.84 Encounter for antibody response examination
CPT/HCPCS: 36415; 82950; 86787; 86803; 86850; 86900; 86901; 87340; 87389; 85025; 86762; 86780

== ENCOUNTER 2019-12-01 11:00 | Observation (INO) | payer OTHER, SELFPAY ==
[2019-12-01 12:26] LABS: Fetal Fibronectin Negative (Negative)
--- NOTE | 2019-12-01 13:24 | W.PM.HP.N ---
Date of service: 12/01/19 Time of Service: 13:24 Assessment and Plan Assessment and plan (1) Abdominal pain affecting : Status: Acute Assessment and plan: Patient with mild abdominal pain that has resolved since she has been there. No evidence of UTI, no evidence of active labor. Will be discharged home with instructions to return if there is decreased movement, contractions, leakage of fluid bleeding or any other problems. History of Present Illness History of Present Illness Chief Complaint: Lower abdominal pain that is intermittent since Sunday night, p Narrative: Denies dysuria, diarrhea, fevers chills, leakage of fluid, or vaginal bleeding. Reports excellent Review of Systems All systems reviewed & are unremarkable except as noted in HPI and below [facility] Medical History (Updated 12/01/19 @ 13:27 by Andrew Fontenot MD) Contraception (Resolved 01/16/17) OCPs start 14yo. Changed to Depo till Mirena 01/2017. 01/17/18 Mirena IUD removed. 05/2018 NuvaRing. Irregular menses (Resolved 01/16/17) amenorrhea x6mo after stopping OCPs. eventually had return to regular menses prior to beginning DepoProvera. Menorrhagia (Resolved 01/16/17) Neoplasm of unspecified nature of bone, soft tissue, and skin (Resolved 05/23/17) Obesity, Class III, BMI 40-49.9 (morbid obesity) (Resolved) PCOS (polycystic ovarian syndrome) (Chronic) Trichomonas vaginalis (TV) infection (Resolved) 01/2018. Rx for metronidazole given to partner and patient Trichomonas vaginalis infection (Resolved 01/17/18) Rx for metronidazole provided to patient and her partner. Ulcerative colitis (Chronic) Stable with mesalamine. Uses vaginal contraceptive ring (Chronic) Family History (Updated 07/02/19 @ 14:08 by Rodriguez Vargas CNM) Maternal Grandmother Diabetes Paternal Grandmother Diabetes Paternal Grandfather Diabetes Social History Smoking/Tobacco Use Status: Current every day (decreased from 1ppd to 3-4 cigs /day, motivated to quit.) Tobacco Type: cigarettes Alcohol Intake: former (occ prior to knowledge of ) Drug use: Never Substance use type: does not use Do you feel safe in your relationship?: Yes Additional Social history: Mother is Dolly Zaidi who works at the [employer]. Female Reproductive History Menstrual control method: vaginal ring History History 1 Para 0 Hx # Term Pregnancies 0 Multiple births 0 Hx # Pregnancies 0 Ectopic pregnancies 0 AB induced 0 Hx Number of Living Children 0 AB spontaneous 0 Meds Home Medications and Allergies Home Medications Medication Instructions Recorded Confirmed Type pediatric multivitamin no.76 2 tab PO DAILY tab 07/02/19 12/01/19 History pyridoxine (vitamin B6) 25 mg 25 mg PO TID PRN tab 07/02/19 12/01/19 History tablet mesalamine 1.2 gram tablet,delayed 2.4 gm PO DAILY 56 Days #120 tab 07/30/19 12/01/19 Rx release Allergies Allergy/AdvReac Type Severity Reaction Status Date / Time amoxicillin [Amoxicillin] AdvReac Intermediate Diarrhea Verified 12/01/19 10:27 Exam Narrative Exam Narrative: Patient is alert, no acute distress, was placed on the heart rate monitor and there is no contractions seen, cervix is long thick closed posterior and firm. fibronectin was done prior to cervical exam the fibronectin result is negative. Urinalysis is also normal as well. Results Labs Labs: Laboratory Results - last 24 hr 12/01/19 11:40 Fibronectin Negative
== END 2019-12-01 13:15 | disposition home or self-care (01) ==
PROVIDERS: Admitting Provider Obstetrics & Gynecology; PCP Physician Assistant Medical; Visit Provider Obstetrics & Gynecology
DX: O26.893 Other specified pregnancy related conditions, third trimester (principal); R10.9 Unspecified abdominal pain; Z3A.31 31 weeks gestation of pregnancy
CPT/HCPCS: 99221; 82731; G0378

== ENCOUNTER 2019-12-01 12:21 | Outpatient (REF) | payer OTHER, SELFPAY | END 2019-12-01 12:41 | LOC: LBN 12:21 | PROVIDERS: PCP Physician Assistant Medical; Visit Provider Obstetrics & Gynecology | DX: O26.893 Other specified pregnancy related conditions, third trimester (principal); R10.9 Unspecified abdominal pain | CPT/HCPCS: 87086 ==

== ENCOUNTER 2019-12-13 04:23 | Emergency (ER) | payer OTHER, SELFPAY ==
[2019-12-13 04:27] VITALS: BP 137/77; PULSE 90; RESP 18; TEMP 36.5; O2SAT 100
--- NOTE | 2019-12-13 04:32 | ED.GENADUL_ITS ---
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 Please avoid any sexual intercourse or any vaginal penetration until the delivery of your child. Please maintain pelvic rest until delivery. In regards to your throat your strep test is negative. Please continue to gargle salt water, take Tylenol as needed, you can take 2 tablespoons of honey every 6 hours to help as well. If you notice any worsening of your symptoms, or any new symptoms such as vomiting, diarrhea, fever, chills, shortness of breath, chest pain, numbness, weakness, or fainting , please return immediately to the emergency department for reevaluation. Please follow up with your primary care provider as soon as possible for reassessment and reevaluation. As always, it was a pleasure participating in your medical care today. Referrals: Mane Story PA [Primary Care Provider] - Medical Decision Making 24-year-old female who is currently 32 weeks presents today for evaluation of vaginal bleeding mild sore throat. Patient had intercourse l ast night, she felt that she was particularly dry in her vaginal region. She felt that there was a small amount of tearing during intercourse. She has had some mild bleeding since then, but denies any abdominal cramps, pelvic cramps or other pain. She is Rh+. She has had normal ultrasound. In regards to her sore throat is been present for the last 24 hours, exam demonstrates mild to minimal redness, minimal right-sided tonsillar enlargement. No signs of airway compromise. Differential includes strep throat versus viral upper respiratory infection. Will perform vaginal exam and reassess. 4:43 AM strep test was negative. Bedside exam demonstrates evidence of only a notably superficial vaginal skin abrasion/tear. No indication for suturing. No active bleeding at this time, no blood at the cervical loss or in the vaginal vault. Recommend pelvic rest until delivery of the child, Tylenol as needed for pain, gargling with salt water. Discussed red flags for which to return. I have extensively reviewed the treatment plan and discharge instructions with the patient. I have addressed all patient concerns at this time. The patient was made aware of what symptoms to monitor for that would warrant a return to the emergency department. Discussed the plan with the patient, they demonstrate verbal understanding and agreement with our assessment and plan at this time. Documented heart rate of 127 HPI General Date/Time Provider Initiated Documentation: 12/13/19 04:24 . HPI Narrative: 24-year-old female who is currently 32 weeks who is Rh+ presents for vaginal bleeding and sore throat. In conjunction with a mild cough. Patient states that this evening she had intercourse with her significant other, she felt that she was very dry in her vaginal region, and had some mild tearing during intercourse. No significant pain at that time however she has had mild bleeding since then. She is not wearing pads and can otherwise not quantify the amount. She denies any pelvic or abdominal cramping whatsoever. She denies any nausea vomiting or diarrhea. She denies any other complaints. In regards to her sore throat is been present for the last 24 to 48 hours. She admits to a very mild nonproductive cough as well. She denies any difficulty swallowing or breathing. She denies fever or chills. No other complaints. 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 Changed to Depo till Mirena 01/2017. 01/17/18 Mirena IUD removed. 05/2018 NuvaRing. Irregular menses (Resolved 01/16/17) amenorrhea x6mo after stopping OCPs. eventually had return to regular menses prior to beginning DepoProvera. Menorrhagia (Resolved 01/16/17) Neoplasm of unspecified nature of bone, soft tissue, and skin (Resolved 05/23/17) Obesity, Class III, BMI 40-49.9 (morbid obesity) (Resolved) PCOS (polycystic ovarian syndrome) (Chronic) Trichomonas vaginalis (TV) infection (Resolved) 01/2018. Rx for metronidazole given to partner and patient Trichomonas vaginalis infection (Resolved 01/17/18) Rx for metronidazole provided to patient and her partner. Ulcerative colitis (Chronic) Stable with mesalamine. Uses vaginal contraceptive ring (Chronic) Family History (Updated 07/02/19 @ 14:08 by Rodriguez Vargas CNM) Maternal Grandmother Diabetes Paternal Grandmother Diabetes Paternal Grandfather Diabetes Social History Smoking/Tobacco Use Status: Current every day (decreased from 1ppd to 3-4 cigs /day, motivated to quit.) Tobacco Type: cigarettes Alcohol Intake: former (occ prior to knowledge of ) Drug use: Never Substance use type: does not use Do you feel safe in your relationship?: Yes Additional Social history: Mother is Dolly Zaidi who works at the [employer]. Female Reproductive History Menstrual control method: vaginal ring History History 1 Para 0 Hx # Term Pregnancies 0 Multiple births 0 Hx # Pregnancies 0 Ectopic pregnancies 0 AB induced 0 Hx Number of Living Children 0 AB spontaneous 0 Exam Narrative Exam Narrative: 1.Const: Well-nourished, Well-developed, appearing stated age 2.Eyes: PERRL, no conjunctival injection, and symmetrical lids. 3.ENT: Atraumatic external nose and ears. Moist MM. Neck: Symmetric, trachea midline, No thyromegaly. No significant erythema in the posterior oropharynx. Right tonsil is minimally enlarged. No significant tonsillar exudates. No evidence of peritonsillar abscess. No signs of airway compromise. 4.CVS: +S1/S2, No murmurs or gallops. Peripheral pulses 2+ and equal in all extremities. Brisk capillary refill in all extremities. 5.RESP: Unlabored respiratory effort. Clear to auscultation bilaterally. No wheezes rales or rhonchi 6.GI: Soft, Nontender/Nondistended, No hepatosplenomegaly. No guarding or rebound. Appropriately gravid abdomen, no tenderness on palpation. Vaginal exam was performed with female nurse Antoinette at bedside. Vaginal exam demonstra wu evidence of a superficial external labial abrasion/mild skin tear, no active bleeding at this time. The remainder of the exam showed no bleeding at the cervical loss, no internal bleeding whatsoever. Because of bleeding was completely superficial in nature. No indication for suturing as it was of only the superficial layers of the vaginal skin. 7.MSK: Normocephalic/Atraumatic, Extremities w/o deformity or ttp No cyanosis or clubbing, Normal movement of all extremities 8.Skin: Warm, Dry. No rashes or lesions. 9.Neuro: photo mask cleaner II-XII grossly intact. Sensation grossly intact, no focal ne urologic deficits. 10.Psych: (AAO) x3. Appropriate mood and affect Course Vital Signs Vital signs: Vital Signs Temperature 36.5 C 12/13/19 04:27 Pulse 90 12/13/19 04:27 Respiratory Rate 18 12/13/19 04:27 Blood Pressure 137/77 12/13/19 04:27 Pulse Oximetry 100 12/13/19 04:27 Temperature 36.5 C 12/13/19 04:27 Temperature Source Skin 12/13/19 04:27 Pulse 90 12/13/19 04:27 Respiratory Rate 18 12/13/19 04:27 Blood Pressure 137/77 12/13/19 04:27 Pulse Oximetry 100 12/13/19 04:27 Pain Level 4 12/13/19 04:27
== END 2019-12-13 04:55 | disposition home or self-care (01) ==
LOC: ER 04:59
PROVIDERS: Emergency Provider Student in an Organized Health Care Education/Training Program; PCP Physician Assistant Medical
DX: O71.89 Other specified obstetric trauma (principal); Z3A.32 32 weeks gestation of pregnancy; O26.853 Spotting complicating pregnancy, third trimester; J02.9 Acute pharyngitis, unspecified
CPT/HCPCS: 87880; 99284; 87081

== ENCOUNTER 2019-12-15 17:26 | Outpatient (CLI) | payer OTHER, SELFPAY | END 2019-12-15 17:46 | PROVIDERS: PCP Physician Assistant Medical; Visit Provider Obstetrics & Gynecology | DX: O99.513 Diseases of the respiratory system complicating pregnancy, third trimester (principal); J06.9 Acute upper respiratory infection, unspecified; Z3A.33 33 weeks gestation of pregnancy | CPT/HCPCS: 87449; 59025 ==

== ENCOUNTER 2020-01-02 12:30 | Outpatient (REF) | payer OTHER, SELFPAY | END 2020-01-02 12:50 | LOC: LBN 12:30 | PROVIDERS: PCP Physician Assistant Medical; Visit Provider Obstetrics & Gynecology | DX: Z34.93 Encounter for supervision of normal pregnancy, unspecified, third trimester (principal); Z36.85 Encounter for antenatal screening for Streptococcus B | CPT/HCPCS: 87081 ==

== ENCOUNTER 2020-02-02 18:40 | Observation (INO) | payer OTHER, SELFPAY ==
[2020-02-02 20:37] LABS: ROM Plus Negative
[2020-02-03] MEDS: MORPHine 10 MG/ML VIAL IM (04:04)
== END 2020-02-02 20:50 | disposition home or self-care (01) ==
PROVIDERS: Admitting Provider Obstetrics & Gynecology; PCP Physician Assistant Medical; Visit Provider Obstetrics & Gynecology
DX: O47.1 False labor at or after 37 completed weeks of gestation (principal); Z3A.40 40 weeks gestation of pregnancy
CPT/HCPCS: 84112; G0378; J2270

== ENCOUNTER 2020-02-03 02:30 | Inpatient (IN) | payer OTHER, SELFPAY ==
[2020-02-03] MEDS: MORPHine 10 MG/ML VIAL IM (04:00)
[2020-02-03 09:30] LABS: HCT 38.9 % (36.0-46.0); HGB 13.5 g/dL (12.0-15.5); Mean Corp. HGB Concentration 34.7 g/dL (32.0-36.0); Mean Corpuscular Hemoglobin 30.9 pg (27.0-33.0); Mean Platelet Volume 11.9 fL (8.0-11.0); Platelet Count 178 x1000/uL (130-400); RBC 4.37 m/cumm (4.00-5.20); RBC Distribution Width 13.8 % (11.7-14.6)
[2020-02-03] MEDS: Lactated Ringers 1,000 ML 125 ML IV (13:38)
[2020-02-03] MEDS: FentaNYL/ROPIvacaine 2 mcg/ml and 0.1% 200 ML CADD Cassette EP (13:38)
[2020-02-03] MEDS: Lactated Ringers 250 ML 500 ML IV (18:11)
[2020-02-04] MEDS: Acetaminophen 325 MG TAB 650 MG PO ×2 (05:26→09:38)
[2020-02-04] MEDS: Ibuprofen 600 MG TAB PO ×3 (05:27→22:50)
[2020-02-05] MEDS: Ibuprofen 600 MG TAB PO (08:48)
--- NOTE | 2020-02-05 13:17 | W.PM.DS.N ---
Date of service: 02/05/20 Time of Service: 13:17 DS: Diagnosis Discharge Diagnosis (1) Vaginal delivery: Status: Acute Asessment and Plan: Patient was admitted on 02/02/2020 with prodromal labor At 40-1/7 weeks estimated stational age. She was observed overnight and oxytocin was administered beginning the morning of 02/03/2020. She went on to have a spontaneous vaginal delivery of a viable female infant named Kathryn on 02/04/2020. course was uncomplicated she was discharged to home on day 1 successfully breast-feeding. Pelvic discomfort was controlled with nonsteroidal anti-inflammatories. She was given a discharge instructions regarding pelvic rest and follow-up by telemedicine in 2 weeks. She plans to use NuvaRing for contraception in the future. Discharge Plan Disposition Patient Disposition: HOME Condition: Good Discharge Details Reason For Visit: RULE OUT LABOR Admit Date/Time: 02/03/20 02:30 Admit Provider: Sebastian Aguilar Attending Provider: Sebastian Aguilar Primary Care Provider: Mane Story Hospital Course Hospital Course: Discharge to home day 1. Patient will have a telemedicine visit in 2 weeks. Discharge medications ibuprofen yuco-ymk-vzqrfyr 600 mg every 6 hours as needed for pain. Patient can resume her mesalamine while breast-feeding. Home Meds and New Rx's Prescriptions: No Action Flintstones Complete Tablet,Chewable 2 tab PO DAILY RF: 0 pyridoxine (vitamin B6) 25 mg tablet 25 mg PO TID PRNRF: 0 mesalamine 1.2 gram tablet,delayed release (DR/EC) 2.4 gm PO DAILY 56 Days Qty: 120 RF: 2 Discharge Instructions Stand Alone Forms: BC Instructions, BC Post Vaginal Deliver Activity:: Nothing in the vagina Equipment/Supplies:: No Equipment Needed Diet:: As Tolerated Discharge Orders Discharge Orders: Discharge Order (Routine); Ordered 02/05/20 Ordered By: Yeny Beach DS: Summary Status at Discharge Functional status at discharge: independent ambulation Overall status at discharge: patient is progressing back to baseline Mental Status: mental status grossly normal Speech and Movement: speech and movement normal Mood: congruent mood Affect: normal affect Exam Psych Mental Status: mental status grossly normal Speech and Movement: speech and movement normal Mood: congruent mood Affect: normal affect DS: Data Vitals/I&O Vitals and I&O: Vital Signs Pain Level 4 02/05/20 08:48 PFSH Medical History (Updated 02/05/20 @ 13:17 by Yeny Beach MD) Contraception (Resolved 01/16/17) OCPs start 14yo. Changed to Depo till Mirena 01/2017. 01/17/18 Mirena IUD removed. 05/2018 NuvaRing. Irregular menses (Resolved 01/16/17) amenorrhea x6mo after stopping OCPs. eventually had return to regular menses prior to beginning DepoProvera. Menorrhagia (Resolved 01/16/17) Neoplasm of unspecified nature of bone, soft tissue, and skin (Resolved 05/23/17) Obesity, Class III, BMI 40-49.9 (morbid obesity) (Resolved) PCOS (polycystic ovarian syndrome) (Chronic) Trichomonas vaginalis (TV) infection (Resolved) 01/2018. Rx for metronidazole given to partner and patient Trichomonas vaginalis infection (Resolved 01/17/18) Rx for metronidazole provided to patient and her partner. Ulcerative colitis (Chronic) Stable with mesalamine. Uses vaginal contraceptive ring (Chronic) Vaginal delivery (Acute) Family History (Updated 07/02/19 @ 14:08 by Rodriguez Vargas CNM) Maternal Grandmother Diabetes Paternal Grandmother Diabetes Paternal Grandfather Diabetes Social History Smoking/Tobacco Use Status: Current every day Tobacco Type: cigarettes Alcohol Intake: former Drug use: Never Substance use type: does not use Current gender identity: female Do you feel safe in your relationship?: Yes Additional Social history: Mother is Dolly Zaidi who works at the [employer]. Female Reproductive History Menstrual control method: vaginal ring History History 1 Para 1 Hx # Term Pregnancies 1 Multiple births 0 Hx # Pregnancies 0 Ectopic pregnancies 0 AB induced 0 Hx Number of Living Children 1 AB spontaneous 0
== END 2020-02-05 13:45 | disposition home or self-care (01) | DRG 806 ==
PROVIDERS: Admitting Provider Obstetrics & Gynecology; PCP Physician Assistant Medical; Visit Provider Obstetrics & Gynecology
DX: O48.0 Post-term pregnancy (principal); O71.4 Obstetric high vaginal laceration alone; Z37.0 Single live birth; O76 Abnormality in fetal heart rate and rhythm complicating labor and delivery; Z3A.40 40 weeks gestation of pregnancy; O69.1XX0 Labor and delivery complicated by cord around neck, with compression, not applicable or unspecified; O75.81 Maternal exhaustion complicating labor and delivery
CPT/HCPCS: 36415; 85027; 86850; 86900; 86901; NC; J3490

== ENCOUNTER 2020-02-05 12:48 | Outpatient (CLI) | payer OTHER, SELFPAY | END 2020-02-05 13:08 | PROVIDERS: PCP Physician Assistant Medical; Visit Provider Obstetrics & Gynecology Gynecology | DX: Z39.1 Encounter for care and examination of lactating mother (principal) | CPT/HCPCS: E0602 ==

== ENCOUNTER 2020-09-05 16:18 | Emergency (ER) | payer MEDICAID, SELFPAY ==
[2020-09-05 16:24] VITALS: BP 139/85; PULSE 77; RESP 16; TEMP 36.7; O2SAT 98
--- NOTE | 2020-09-05 16:57 | W.ED.GENAD ---
Discharge Plan Disposition Patient Disposition: HOME Condition: Stable Discharge Details Clinical Impression: Dental infection Primary Care Provider: Mane Story ED Provider: Sebastian Cosme Home Meds and New Rx's Prescriptions: New penicillin V potassium 500 mg tablet 500 mg PO TID 10 Days Qty: 30 RF: 0 Continued mesalamine 1.2 gram tablet,delayed release (DR/EC) 2.4 gm PO DAILY 56 Days Qty: 120 RF: 2 etonogestrel-ethinyl estradiol [EluRyng] 0.12-0.015 mg/24 hr ring 1 vag ring VG Q4W Qty: 3 RF: 5 Discharge Instructions Instructions: Dental Abscess (ED) Additional Instructions: Amoxicillin as directed. Batq-lde-jvoaxmk Tylenol and/or Motrin as directed for discomfort. Cool and/or warm compresses every 2 hours for 20 minutes. Salt water gargle and spit as tolerated. Please watch for new or worsening symptoms and return to the ER for any concerns. I will give you a dental list of local dentist, please contact them tomorrow for prompt outpatient reevaluation. Medical Decision Making 25-year-old female reports right lower dental pain worsening over the past 2 days. This has been going on for a couple of months. She is in the process of establishing a new dentist. She appears well, nontoxic, afebrile, no respiratory compromise, airway is patent. I will provide her with the dental list, initiate antibiotic therapy, and we talked about lwho-ord-rnuokdw Tylenol, Motrin, cool and/or warm compresses, salt water gargles. Patient reports that she has had diarrhea to amoxicillin in the past but no rash, airway compromise, wheezing, mouth or tongue swelling. She is unsure whether or not she is ever take penicillin but is open to trying this medication. First dose of Pen-Vee K will be given here as pharmacies are closed Medical Records Medical records reviewed: Yes I reviewed the patient's medical records. HPI General Mode of arrival: ambulatory. Date/Time Provider Initiated Documentation: 09/05/20 16:29. Limitations to Documentation: no limitations. Information obtained by: patient. HPI Narrative: This is a 25-year-old female, current smoker, not breast-feeding, presenting for ongoing right lower front molar discomfort. She reports that a couple of months ago her filling fell out, she has been seen as an outpatient by a dentist who recommended a root canal. She is attempting to be seen by another dentist for a second opinion. Subsequently she has been placed on antibiotics twice over the past few months, unsure of the name of the antibiotic. 2 days ago, pain came back and has been increasing. Taking ilnm-ooc-kfrdyeb Tylenol with mild relief. Denies fever, sore throat, difficulty speaking or swallowing. Patient states that she is off of work tomorrow and plans on calling all of the local dentist to get outpatient dental care. Related Data Home Medications Medication Instructions Recorded Confirmed mesalamine 1.2 gram tablet,delayed 2.4 gm PO DAILY 56 Days #120 tab 07/30/19 09/05/20 release etonogestrel 0.12 mg-ethinyl 1 vag ring VG Q4W #3 each 07/08/20 09/05/20 estradiol 0.015 mg/24 hr vaginal ring penicillin V potassium 500 mg PO TID 10 Days #30 tab 09/05/20 Previous Rx's Medication Instructions Recorded mesalamine 1.2 gram tablet,delayed 2.4 gm PO DAILY 56 Days #120 tab 07/30/19 release etonogestrel 0.12 mg-ethinyl 1 vag ring VG Q4W #3 each 07/08/20 estradiol 0.015 mg/24 hr vaginal ring penicillin V potassium 500 mg PO TID 10 Days #30 tab 09/05/20 Allergies Allergy/AdvReac Type Severity Reaction Status Date / Time amoxicillin [Amoxicillin] AdvReac Intermediate Diarrhea Verified 09/05/20 16:27 General Stated Complaint: DentalOral MCKAY: 4 Review of Systems Constitutional Constitutional: Denies fever(s) and Denies headache(s) ENT Ears, Nose, Mouth, and Throat: Denies headache(s), Denies neck pain and Denies sore throat Respiratory Respiratory: Denies cough Musculoskeletal Musculoskeletal: Denies neck pain Neurologic Neurologic: Denies headache(s) [facility] Medical History Contraception (01/16/17) OCPs start 14yo. Changed to Depo till Mirena 01/2017. 01/17/18 Mirena IUD removed. 05/2018 NuvaRing. Irregular menses (01/16/17) amenorrhea x6mo after stopping OCPs. eventually had return to regular menses prior to beginning DepoProvera. Menorrhagia (01/16/17) Neoplasm of unspecified nature of bone, soft tissue, and skin (05/23/17) Obesity, Class III, BMI 40-49.9 (morbid obesity) PCOS (polycystic ovarian syndrome) Tobacco use Increased frequency during did not stop completely. 415 2024 cigarette/day Trichomonas vaginalis (TV) infection 01/2018. Rx for metronidazole given to partner and patient Trichomonas vaginalis infection (01/17/18) Rx for metronidazole provided to patient and her partner. Ulcerative colitis Stable with mesalamine. Uses vaginal contraceptive ring Vaginal delivery Family History Maternal Grandmother Diabetes Paternal Grandmother Diabetes Paternal Grandfather Diabetes Social History Smoking/Tobacco Use Status: Current every day Tobacco Type: cigarettes Smoking risk assessment performed?: Yes Alcohol Intake: former Drug use: Never Substance use type: does not use Current gender identity: female Do you feel safe in your relationship?: Yes Additional Social history: Mother is Dolly Zaidi who works at the [employer]. Female Reproductive History Menstrual control method: vaginal ring History History 1 Para 1 Hx # Term Pregnancies 1 Multiple births 0 Hx # Pregnancies 0 Ectopic pregnancies 0 AB induced 0 Hx Number of Living Children 1 AB spontaneous 0 Past Pregnancies Del. Date GA/Weeks # Outcome Route Wgt Sex Labor Lgth Anesthesia Location [facility] 02/04/20 40 No Successful vaginal 3600.389 g Female [address] Beach Exam Const General: cooperative, healthy appearing, comfortable and no acute distress Orientation: alert, awake and oriented x3 HENMT Head: normal to inspection, normocephalic and atraumatic Ears: external ears normal, TM's normal bilaterally and EAC's normal General nose exam: external nose normal Face and sinus: normal facial exam Mouth: oral mucosae normal and moist mucous membranes Teeth image: 1. Point tenderness, dental carry-fracture. There is no localized swelling, erythema, pointing abscess. Throat: posterior oropharynx normal Eyes Conjunctivae: conjunctivae normal Sclera: sclerae normal Neck Neck: normal visual inspection, full ROM, no lymphadenopathy, no meningeal signs, trachea midline, supple and nontender Resp Effort & Inspection: normal respiratory effort and able to speak in complete sentences Auscultation: clear to auscultation bilaterally Cardio Rate: regular rate Rhythm: regular rhythm Skin General skin exam: no rashes or lesions noted Neuro General: patient alert, patient awake, moves all extremities and no focal motor deficits Sensory Exam: no sensory deficits noted Psych Appearance: grossly normal Mental Status: mental status grossly normal Course Vital Signs Vital signs: Vital Signs Temperature 36.7 C 09/05/20 16:24 Pulse 77 09/05/20 16:24 Respiratory Rate 16 09/05/20 16:24 Blood Pressure 139/85 09/05/20 16:24 Pulse Oximetry 98 09/05/20 16:24 Temperature 36.7 C 09/05/20 16:24 Temperature Source Skin 09/05/20 16:24 Pulse 77 09/05/20 16:24 Respiratory Rate 16 09/05/20 16:24 Respiratory Effort Non-Labored 09/05/20 16:24 Blood Pressure 139/85 09/05/20 16:24 Blood Pressure Position Sitting 09/05/20 16:24 Pulse Oximetry 98 09/05/20 16:24 Oxygen Delivery Method Room Air 09/05/20 16:24 Oxygen Flow Rate 0 09/05/20 16:24 Pain Level 5 09/05/20 16:24
[2020-09-05] MEDS: Penicillin V POTASSIUM 500 MG TAB PO (17:03)
== END 2020-09-05 17:55 | disposition home or self-care (01) ==
PROVIDERS: Emergency Provider Physician Assistant; PCP Physician Assistant Medical
DX: K08.89 Other specified disorders of teeth and supporting structures (principal); K04.7 Periapical abscess without sinus
CPT/HCPCS: 99283

== ENCOUNTER 2020-11-25 14:49 | Outpatient (REF) | payer MEDICAID, SELFPAY ==
--- NOTE | 2020-11-25 14:00 | PAPFT_PTH ---
PATIENT: Ada Zaidi LOC: [facility] U#:[id number] AGE/SX: 25/F ROOM: RE11/25/[address]: Yeny Beach : 1995 BED: DIS: 11/25/2020 SPEC #: [id number] RECD: 11/25/20 18:18 STATUS: FELICITY REParvez #: [id number] MEHNAZ: 11/25/20 14:[address]: Yeny Beach DEPT: COUNT INCLUDES THE [facility] Cytology RECD BY: Amy To ENTERED: 11/25/20 18:19 SP TYPE: PAPFT MARLINE DR: Mane Story Tissues: 1 - CX/ENDOCX FOR PAP SMEARS Procedures: PAP THIN PREP/UVM Screening Comments: [id number]
== END 2020-11-25 15:09 ==
LOC: LBN 14:49
PROVIDERS: PCP Physician Assistant Medical; Visit Provider Obstetrics & Gynecology Gynecology
DX: Z12.4 Encounter for screening for malignant neoplasm of cervix (principal)
CPT/HCPCS: 88142

== ENCOUNTER 2021-03-09 13:18 | Outpatient (REF) | payer MEDICAID, SELFPAY ==
[2021-03-11 15:19] LABS: COVID-19 RT-PCR UVMMC Result Negative (Negative)
== END 2021-03-09 13:19 | disposition home or self-care (01) ==
LOC: NCHCN 13:18
PROVIDERS: PCP Physician Assistant Medical; Visit Provider Physician Assistant Medical
DX: J06.9 Acute upper respiratory infection, unspecified (principal)
CPT/HCPCS: U0003

== ENCOUNTER 2021-06-19 16:52 | Emergency (ER) | payer MEDICAID, SELFPAY ==
[2021-06-19 16:56] VITALS: BP 121/76; PULSE 71; RESP 18; TEMP 37; O2SAT 100
[2021-06-19] MEDS: Clindamycin 150 MG CAP 450 MG PO (18:25)
--- NOTE | 2021-06-19 22:14 | ED.GENADUL_ITS ---
Discharge Plan Disposition Patient Disposition: HOME Condition: Stable Discharge Details Clinical Impression: Pain, dental Primary Care Provider: Mane Story ED Provider: Amy Good Home Meds and New Rx's Prescriptions: New clindamycin HCl 150 mg capsule 450 mg PO TID 10 Days Qty: 90 RF: 0 No Action Kyleena 17.5 mcg/24 hrs (5 yrs) 19.5 mg intrauterine device 1 device intrauterine ONCE Qty: 1 RF: 0 Discharge Instructions Instructions: Toothache (ED) Additional Instructions: use wax and take antibiotic follow-up with oral surgeon motrin every 8 hours with food tylenol every 6 hours return earlier with new or worsening complaints Discharge Data Discharge Date/Time-TO BE ENTERED AT DEPARTURE: 06/19/21 18:30 Medical Decision Making Patient appears well, placed on clindamycin Oral surgery list for follow-up Ibuprofen and Tylenol for pain control Return discussed and patient expressed understanding Medical Records Medical records reviewed: Yes I reviewed the patient's medical records. HPI General Mode of arrival: ambulatory . Date/Time Provider Initiated Documentation: 06/19/21 17:23 . Limitations to Documentation: no limitations . Information obtained by: patient . HPI Narrative: This 25-year-old female presents with dental pain to her left upper molar. She states that she was chewing a week ago and felt her left upper tooth crumbled. She now has significant pain to the area. She denies any fever or chills. She denies difficulty swallowing. She denies any chest pain or shortness of breath. She is needing ibuprofen and Tylenol for pain. She denies any chance of . The pain is exacerbated with cool and warm temperatures reportedly. Related Data Home Medications Medication Instructions Recorded Confirmed levonorgestrel 1 device INTRAUTERINE ONCE #1 ea 11/26/20 06/19/21 clindamycin HCl 450 mg PO TID 10 Days #90 cap 06/19/21 Previous Rx's Medication Instructions Recorded levonorgestrel 1 device INTRAUTERINE ONCE #1 ea 11/26/20 clindamycin HCl 450 mg PO TID 10 Days #90 cap 06/19/21 Allergies Allergy/AdvReac Type Severity Reaction Status Date / Time amoxicillin [Amoxicillin] AdvReac Intermediate Diarrhea Verified 06/19/21 17:00 General Stated Complaint: DentalOral MCKAY: 5 Review of Systems Narrative: Review of systems obtained x7 and negative aside from where indicated in HPI PFSH Medical History (Updated 06/19/21 @ 18:13 by KASEY Buchanan) Contraception (01/16/17) OCPs start 14yo. Changed to Depo till Mirena 01/2017. 01/17/18 Mirena IUD removed. 05/2018 NuvaRing. 03/2020. NuvaRing PP. 11/2020. Kyleena Irregular menses (01/16/17) amenorrhea x6mo after stopping OCPs. eventually had return to regular menses prior to beginning DepoProvera. IUD (intrauterine device) in place 11/25/2020. Kyleena inserted. Menorrhagia (01/16/17) Neoplasm of unspecified nature of bone, soft tissue, and skin (05/23/17) 2016. Benign melanotic nevis. Obesity, Class III, BMI 40-49.9 (morbid obesity) PCOS (polycystic ovarian syndrome) Tobacco use Increased frequency during did not stop completely. 415 2023 cigar ette/day Trichomonas vaginalis (TV) infection 01/2018. Rx for metronidazole given to partner and patient Trichomonas vaginalis infection (01/17/18) Rx for metronidazole provided to patient and her partner. Ulcerative colitis Stable with mesalamine. Uses vaginal contraceptive ring Family History Maternal Grandmother Diabetes Paternal Grandmother Diabetes Paternal Grandfather Diabetes Social History (Updated 11/15/20 @ 13:09 by Yeny Beach MD) Smoking/Tobacco Use Status: Current every day Tobacco Type: cigarettes Smoking risk assessment performed?: Yes Alcohol Intake: current Alcohol Intake frequency: holidays/special occasions only Drug use: Never Substance use type: does not use Household members: significant other and other Details: Terrell - JGm, Raffi - Pushpa Housing: other Details: She, BF and daughter sharing trailer with her father. 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 Current gender identity: female Do you feel safe at home: Yes Do you feel safe in your relationship?: Yes Additional Social history: Mother is Dolly Zaidi-Pt of [employer]. Female Reproductive History Menstrual control method: vaginal ring History History 1 Para 1 Hx # Term Pregnancies 1 Multiple births 0 Hx # Pregnancies 0 Ectopic pregnancies 0 AB induced 0 Hx Number of Living Children 1 AB spontaneous 0 Past Pregnancies Del. Date GA/Weeks # Outcome Route Wgt Sex Labor Lgth Anesthes ia Location Prov Complic 02/04/20 40 No Successful vaginal 3600.389 g Female [address] Beach Exam Const General: cooperative Orientation: alert and oriented x3 HENMT Teeth image: 1. Fractured tooth noted, no visible soft tissue swelling or evidence of deep space infection, no hard palate induration Other: Uvula midline, maintaining secretions, no submandibular lymphadenopathy Course Vital Signs Vital signs: Vital Signs Temperature 37 C 06/19/21 16:56 Pulse 71 06/19/21 16:56 Respiratory Rate 18 06/19/21 16:56 Blood Pressure 121/76 06/19/21 16:56 Pulse Oximetry 100 06/19/21 16:56 Temperature 37 C 06/19/21 16:56 Temperature Source Temporal Artery Scan 06/19/21 16:56 Pulse 71 06/19/21 16:56 Respiratory Rate 18 06/19/21 16:56 Respiratory Effort Non-Labored 06/19/21 17:01 Blood Pressure 121/76 06/19/21 16:56 Blood Pressure Position Sitting 06/19/21 16:56 Pulse Oximetry 100 06/19/21 16:56 Oxygen Delivery Method Room Air 06/19/21 16:56 Oxygen Flow Rate 0 06/19/21 16:56 Pain Level 10 06/19/21 16:56
== END 2021-06-19 18:30 | disposition home or self-care (01) ==
PROVIDERS: Emergency Provider Physician Assistant; PCP Physician Assistant Medical
DX: R68.84 Jaw pain (principal); K08.89 Other specified disorders of teeth and supporting structures
CPT/HCPCS: 99283

== ENCOUNTER 2023-07-12 15:29 | Outpatient (REF) | payer SELFPAY ==
[2023-07-13 13:14] LABS: Chlamydia Result Negative (Negative); GC Result Negative (Negative)
== END 2023-07-12 15:30 | disposition home or self-care (01) ==
LOC: LBN 15:29
PROVIDERS: PCP Physician Assistant Medical; Visit Provider Obstetrics & Gynecology Gynecology
DX: N94.89 Other specified conditions associated with female genital organs and menstrual cycle (principal)
CPT/HCPCS: 87491; 87591

== ENCOUNTER 2023-12-27 08:55 | Outpatient (REF) | payer SELFPAY | END 2023-12-27 08:56 | disposition home or self-care (01) | LOC: LBN 08:55 | PROVIDERS: PCP Physician Assistant Medical; Visit Provider Obstetrics & Gynecology | DX: N89.8 Other specified noninflammatory disorders of vagina (principal) | CPT/HCPCS: 87480; 87510; 87660 ==

== ENCOUNTER 2024-02-15 19:04 | Emergency (ER) | payer SELFPAY ==
[2024-02-15] VITALS (19 sets, daily range): BP systolic 118–146; BP diastolic 87–93; PULSE 54–103; RESP 16–18; TEMP 36.5; O2SAT 97–100
[2024-02-15 21:01] LABS: Bilirubin Negative (Negative); Blood Large (Negative); Clarity Turbid (Clear); Glucose Negative (Negative); Ketones Negative (Negative); Leukocyte Esterase Negative (Negative); Nitrite Negative (Negative); Specific Gravity >= 1.030 (1.005-1.025); Urobilinogen 0.2 mg/dL (Up to 0.2); pH 5.5 (5-8)
[2024-02-15] MEDS: Normal Saline 1,000 ML 1000 ML IV (21:03)
[2024-02-15 21:04] LABS: Abs Immature Grans 0.02 10^3/uL (0.0-0.06); HCT 43.1 % (36.0-46.0); HGB 14.9 g/dL (11.2-15.7); MCH 30.3 pg (27.0-33.0); MCHC 34.6 % (32.0-36.0); MCV 88 fL (80-95); MPV 10.6 fL (8.0-11.0); Platelet Count 240 10^3/uL (130-400); RBC 4.91 10^6/uL (3.93-5.22); RDW 12.2 % (11.7-14.6); RDW-SD 39.1 fL; WBC 12.55 10^3/uL (4.4-10.8)
[2024-02-15 21:07] LABS: C & S Indicated? Yes; RBC >50 HPF (0-2)
[2024-02-15 21:21] LABS: Absolute Lymphocyte Count 4.14 10^3/uL (1.2-3.4); Absolute Neutrophil Count 7.91 10^3/uL (1.2-6.7); Atypical Lymphocytes % 3; Diff Comment Manual Differential; RBC Morphology Normal
[2024-02-15 21:25] LABS: HCG Qual (Serum) Negative
[2024-02-15] MEDS: Norethindrone 5 MG TAB 10 MG PO (22:12)
--- NOTE | 2024-02-15 22:16 | ED.GENADUL_ITS ---
Discharge Plan Disposition Patient Disposition: Home Condition: Stable Discharge Details Clinical Impression: Abnormal vaginal bleeding Primary Care Provider: Mane Story ED Provider: Amy Good Home Meds and New Rx's Prescriptions: New norethindrone acetate 5 mg tablet 5 mg PO ONCE Qty: 15 0RF Rx Instructions: take 1 tablet, 3 times daily Continued mesalamine [Lialda] 1.2 gram tablet,delayed release (DR/EC) 2.4 g PO DAILY Discontinued etonogestrel-ethinyl estradiol [NuvaRing] 0.12-0.015 mg/24 hr ring 1 vag ring vaginal Q4W Qty: 3 2RF Hold Instructions: Pt Stopped/Never Started Rx Instructions: leave in place for 3 weeks then remove for 1 week before placing new ring Discharge Instructions Additional Instructions: Take the norethindrone 3 times daily starting tomorrow morning, you received a dose this evening Your labs look good and your test was negative If your bleeding persists tomorrow I do recommend reassessment, however it should slow with this medication As we have discussed, there is a risk of tobacco use while taking progesterone and blood clotting I recommend following up with your manager [employer] on Sunday for reassessment of placed on list for follow-up I also ordered an outpatient ultrasound Please return should you have new or worsening complaints Stand Alone Forms: Work Release Referrals: Ronel Cobb MD [ [facility] STAFF PHYSICIAN] - 3 days HPI General Date/Time Provider Initiated Documentation: 02/15/24 20:19 . HPI Narrative: This 28-year-old female presents with report of vaginal bleeding which started this morning. Patient states that she had her IUD removed approximately 3 months ago in October and has not had a period for approximately 3 years. She states the bleeding started this morning. She states she is gone through approximately 20 pads today but it is slowing down. 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: 3 Course Vital Signs Vital signs: Vital Signs Pulse 103 H 02/15/24 19:24 Respiratory Rate 18 02/15/24 19:24 Blood Pressure 118/90 02/15/24 19:24 Pulse Oximetry 97 02/15/24 19:24 Pulse 103 H 02/15/24 19:24 Respiratory Rate 18 02/15/24 19:24 Respiratory Effort Normal 02/15/24 19:27 Blood Pressure 118/90 02/15/24 19:24 Blood Pressure Position Sitting 02/15/24 19:24 Pulse Oximetry 97 02/15/24 19:24 Oxygen Delivery Method Room Air 02/15/24 19:24 Oxygen Flow Rate 0 02/15/24 19:24 Pain Level 7 02/15/24 19:24 Lab/Test Results Lab/Test Results: 02/15/24 20:40 Urine - Reflex from Ua Urine Culture - Pending Laboratory Tests Range/Units 02/15/24 02/15/24 20:40 20:50 WBC (4.4-10.8) 10^3/uL 12.55 H RBC (3.93-5.22) 10^6/uL 4.91 Hgb (11.2-15.7) g/dL 14.9 Hct (36.0-46.0) % 43.1 MCV (80-95) fL 88 MCH (27.0-33.0) pg 30.3 MCHC (32.0-36.0) % 34.6 RDW (11.7-14.6) % 12.2 Plt Count (130-400) 10^3/uL 240 MPV (8.0-11.0) fL 10.6 Immature Gran % 0.0 Neutrophils % 63.0 Lymphocytes % 30.0 Atypical Lymphs % 3 Monocytes % 4.0 Eosinophils % 0.0 Basophils % 0.0 Nucleated RBC % (0.0-0.3) % 0.0 Absolute Neutrophils (1.2-6.7) 10^3/uL 7.91 H Absolute Lymphocytes (1.2-3.4) 10^3/uL 4.14 H Absolute Monocytes (0.1-0.8) 10^3/uL 0.50 Absolute Eosinophils (0.0-0.7) 10^3/uL 0.00 Absolute Basophils (0.0-0.2) 10^3/uL 0.00 RBC Morphology Normal Sodium Cancelled Potassium Cancelled Chloride Cancelled Carbon Dioxide Cancelled Anion Gap Cancelled BUN Cancelled Creatinine Cancelled Est GFR (CKD-EPI 2020) Cancelled Glucose Cancelled Calcium Cancelled Total Bilirubin Cancelled AST Cancelled ALT Cancelled Alkaline Phosphatase Cancelled Total Protein Cancelled Albumin Cancelled Serum HCG, Qual Negative Urine Color (Yellow) Red Urine Clarity (Clear) Turbid Urine pH (5-8) 5.5 Ur Specific [place] (1.005-1.025) >= 1.030 H Urine Protein (Neg-Trace) mg/dL >=300 H Urine Ketones (Negative) mg/dL Negative Urine Blood (Negative) Large H Urine Nitrite (Negative) Negative Urine Bilirubin (Negative) Negative Urine Urobilinogen (Up to 0.2) mg/dL 0.2 Ur Leukocyte Esterase (Negative) Negative Urine RBC (0-2) HPF >50 H Urine WBC (0-5) HPF Ur Epithelial Cells Not Applicable Urine Crystals Not Applicable Urine Bacteria Not Applicable Urine Mucus Not Applicable Ur Culture Indicated? Yes Urine Glucose (Negative) mg/dL Negative POC- Test(urine) Negative Medical Decision Making This 28-year-old female presents with vaginal bleeding since this morning Hemodynamically stable, hemoglobin of 14, no acute distress, continues to bleed but slowing in the emergency department, on exam, she has clots in her vaginal vault Unfortunately we do not have ultrasound available, this is ordered for Sunday Patient stable for norethindrone administration Will give 10 mg in the emergency department followed by 5 3 times a day for the next several days and refer back to gynecology in follow-up, I suspect the bleeding is secondary to removal of IUD approximately 3 months ago, she has a negative qualitative test She is in no acute distress and bleeding has slowed throughout her stay Think patient stable for follow-up, she would like to be discharged home as she is quite tired Her vitals remained stable STD swabs are pending although patient endorses very low risk Chemistry within normal limits, very mild leukocytosis Return precautions reviewed and patient expressed understanding Quality:SDOH Health Related Social Needs: No Data to Display PFSH All Active Problems (Updated 02/15/24 @ 22:29 by KASEY Buchanan) Abnormal vaginal bleeding (Acute) Tobacco use (Acute) Increased frequency during did not stop completely. 415 2023 cigarette/day Ulcerative colitis (Chronic) Stable with mesalamine. PCOS (polycystic ovarian syndrome) (Chronic) Medical History (Updated 02/15/24 @ 22:29 by KASEY Buchanan) Contraception (01/16/17) OCPs start 14yo. Changed to Depo till Mirena 01/2017. 01/17/18 Mirena IUD removed. 05/2018 NuvaRing. 03/2020. NuvaRing PP. 11/2020. Kyleena - removed Oct 2023. Pt desires Dec 2023: wants to restart nuvaring temporarily Irregular menses (01/16/17) amenorrhea x6mo after stopping OCPs. eventually had return to regular menses prior to beginning DepoProvera. Obesity, Class III, BMI 40-49.9 (morbid obesity) Trichomonas vaginalis (TV) infection 01/2018. Rx for metronidazole given to partner and patient Family History Maternal Grandmother Diabetes Paternal Grandmother Diabetes Paternal Grandfather Diabetes Social History (Updated 11/15/20 @ 13:09 by Yeny Beach MD) Smoking/Tobacco Use Status: Current every day Tobacco Type: e-cigarettes Smoking risk assessment performed?: Yes Alcohol Intake: current Alcohol Intake frequency: holidays/special occasions only Drug use: Never Substance use type: does not use Household members: significant other and other Details: Terrell - [place], Raffi - [place] Housing: other Details: She, BF and daughter sharing trailer with her father. 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 Current gender identity: female Do you feel safe at home: Yes Do you feel safe in your relationship?: Yes Additional Social history: Mother is Dolly Zaidi-Pt of [facility]. Female Reproductive History Menstrual control method: vaginal ring History History 1 Para 1 Hx # Term Pregnancies 1 Multiple births 0 Hx # Pregnancies 0 Ectopic pregnancies 0 AB induced 0 Hx Number of Living Children 1 AB spontaneous 0 Past Pregnancies Del. Date GA/Weeks # Preg Succ Route Wgt Sex Labor Lgth Anesth esia Location Prov Complic 02/04/20 40 No vaginal 3600.389 g Female [address] [place]
[2024-02-15 22:45] LABS: ALT 37 U/L (14-59); AST 22 U/L (15-37); Albumin 3.6 g/dL (3.4-5.0); Alkaline Phosphatase 106 U/L (46-116); BUN 13 mg/dL (7-18); Bilirubin, Total 0.3 mg/dL (0.2-1.0); CREATININE 0.8 mg/dL (0.55-1.02); Calcium 9.1 mg/dL (8.5-10.1); Chloride 106 mmol/L (98-107); Estimated GFR 102.86 (mL/min/1.73m2); Glucose 85 mg/dL (74-106); Potassium 4.1 mmol/L (3.5-5.1); Sodium 142 mmol/L (136-145); Total Protein 7.3 g/dL (6.4-8.2)
--- NOTE | 2024-02-16 01:15 | NUR.NOTE ---
Pt placed on care management referral list to be seen LEATHER SEASONER on Sunday02/18/24 per ER provider Florentino
[2024-02-18 13:22] LABS: Chlamydia Result Negative (Negative); GC Result Negative (Negative)
== END 2024-02-15 23:01 | disposition home or self-care (01) ==
LOC: ER 22:48
PROVIDERS: Emergency Provider Physician Assistant; PCP Physician Assistant Medical
DX: N93.9 Abnormal uterine and vaginal bleeding, unspecified (principal)
CPT/HCPCS: 36415; 80053; 81025; 87491; 87591; 96360; 99285; 81003; 81015; 84703; 85025; 87086; 87480; 87510; 87660; 99284

== ENCOUNTER 2025-01-22 07:01 | Emergency (ER) | payer SELFPAY ==
[2025-01-22 07:03] VITALS: BP 151/104; PULSE 81; RESP 18; TEMP 36.1; O2SAT 97
[2025-01-22 07:08] VITALS: BP 151/104; PULSE 81; RESP 18; TEMP 36.1; O2SAT 97
--- NOTE | 2025-01-22 07:54 | ED.GENADUL_ITS ---
Discharge Plan Disposition Patient Disposition: Home Condition: Stable Discharge Details Clinical Impression: Acute maxillary sinusitis Primary Care Provider: Mane Story ED Provider: Enrique Locke Home Meds and New Rx's Prescriptions: New amoxicillin-pot clavulanate 875-125 mg tablet 1 tab PO BID Qty: 13 0RF Discontinued mesalamine [Lialda] 1.2 gram tablet,delayed release (DR/EC) 2.4 g PO DAILY etonogestrel-ethinyl estradiol [NuvaRing] 0.12-0.015 mg/24 hr ring 1 vag ring vaginal Q4W Qty: 3 5RF Rx Instructions: leave in place for 3 weeks of a 4-week cycle Discharge Instructions Instructions: Sinusitis, Adult ED Additional Instructions: Your blood pressure was elevated today. Please be sure to discuss this with your doctor and have it rechecked. Should blood pressure remain elevated, additional outpatient diagnostic treatment and testing may be necessary. Please drink plenty of fluid and allow for plenty of rest. Please take full course of antibiotic as prescribed. Please follow-up with your primary care physician. If symptoms do not improve with antibiotics, please call your doctor or return for reevaluation. Return to the emergency department immediately for any worsening or new concerning symptoms. Referrals: Mane Story PA [Primary Care Provider] - [facility] General Mode of arrival: ambulatory . Date/Time Provider Initiated Documentation: 01/22/25 07:05 . Limitations to Documentation: no limitations . Information obtained by: patient . HPI Narrative: HISTORY OF PRESENT ILLNESS 29-year-old female with 3-day history of unilateral facial pain, pressure in cheek radiating to teeth and eye, excessive tearing, ear discomfort, and headache unresponsive to OTC medications. No facial movement difficulty. Reports thick green mucus, no fever or rash. Using generic Sudafed, Tylenol, and saline spray without relief. Had a cold 3 weeks ago with resolved sore throat, cough, and runny nose. Increased earwax production noted. Diagnosed with ulcerative colitis at 18, managed with diet and Lialda (discontinued 3 years ago due to constipation). No other significant medical problems or recent immunosuppressant use. No allergy to PCN. Had loose stool with amoxicillin as a child. Subsequently tolerated PCN multiple times. Related Data Home Medications ?Medication ?Instructions ?Recorded ?Confirmed amoxicillin 875 mg-potassium 1 tab PO BID #13 tabs 01/22/25 clavulanate 125 mg tablet Previous Rx's ?Medication ?Instructions ?Recorded amoxicillin 875 mg-potassium 1 tab PO BID #13 tabs 01/22/25 clavulanate 125 mg tablet Allergies Allergy/AdvReac Type Severity Reaction Status Date / Time amoxicillin (Amoxicillin) AdvReac Intermediate Diarrhea Verified 01/22/25 07:07 General Stated Complaint: FacialProb MCKAY: 4 Review of Systems All systems reviewed & are unremarkable except as noted in HPI and below Constitutional Constitutional: Reports as per HPI and Denies fever(s) Exam Narrative Exam Narrative: PHYSICAL EXAM General Appearance: Normal. Vital signs: BP 151/104, HR 81, RR 18, Temp 36.1, O2 sat 97% on room air. HEENT: Throat clear, no redness. Pupils equal, round, reactive. EOMI. Left ear: little wax, TM visible and normal. Right ear: significant wax, TM barely v isible, slightly full. Upper molars on affected side have fillings. No mouth swelling. Right face swelling present over maxilla, mild. Significant maxillary sinus tenderness. Respiratory: Lungs clear. Cardiovascular: Heart regular rate and rhythm, no murmurs. Lymphatic: No lymphadenopathy. Skin: Warm and dry, no rash. Neurological: Normal. Course Vital Signs Vital signs: Vital Signs Temperature 36.1 C L 01/22/25 07:03 Pulse 81 01/22/25 07:03 Respiratory Rate 18 01/22/25 07:03 Blood Pressure 151/104 H 01/22/25 07:03 Pulse Oximetry 97 01/22/25 07:03 Temperature 36.1 C L 01/22/25 07:08 Temperature Source Tympanic 01/22/25 07:08 Pulse 81 01/22/25 07:08 Respiratory Rate 18 01/22/25 07:08 Blood Pressure 151/104 H 01/22/25 07:08 Blood Pressure Position Sitting 01/22/25 07:08 Pulse Oximetry 97 01/22/25 07:08 Oxygen Delivery Method Room Air 01/22/25 07:08 Oxygen Flow Rate 0 01/22/25 07:08 Medical Decision Making ASSESSMENT AND PLAN Initial Assessment: 29-year-old female with facial pain, ear and teeth aching for 3 days, thick green mucus, and maxillary sinus tenderness. Hypertensive at 151/104. Differential Diagnosis: - Acute rhinosinusitis: Facial pain, pressure in teeth and eye, thick green mucus, maxillary sinus tenderness. Suspected bacterial. Start antibiotics, complete full course. Hydration, Tylenol or ibuprofen for pain. - Elevated BP ED Course: - Physical exam: Heart and lungs normal, no throat redness, no swollen lymph nodes, earwax buildup noted, tympanic membranes barely visible, maxillary sinus tenderness. - Diagnostic consideration: Acute rhinosinusitis suspected to be bacterial. - Treatment: Start antibiotics, hydration, Tylenol or ibuprofen for pain. Final Assessment: Patient presents with symptoms consistent with acute rhinosinusitis, suspected bacterial. Treatment initiated with antibiotics, hydration, and pain management. Clinical Impression: - Acute rhinosinusitis - Elevated blood pressure Disposition: - Discharge MDM Components Evaluation: - Number of Differential Diagnoses or Management Options: Acute rhinosinusitis - Amount and Complexity of Data Reviewed: Physical exam findings, patient history - Risk of Complication and Morbidity or Mortality: Moderate due to suspected bacterial infection and hypertension. This document was written with the assistance of JAZMÍN Luong. The patient consented to its use. Quality:SDOH Health Related Social Needs: No Data to Display PFSH All Active Problems (Updated 01/22/25 @ 07:55 by Enrique Locke MD) Acute maxillary sinusitis (Acute) Tobacco use (Acute) Increased frequency during did not stop completely. 415 2023 cigarette/day Ulcerative colitis (Chronic) Stable with mesalamine. PCOS (polycystic ovarian syndrome) (Chronic) Medical History (Updated 01/22/25 @ 07:55 by Enrique Locke MD) Contraception (01/16/17) OCPs start 14yo. Changed to Depo till Mirena 01/2017. 01/17/18 Mirena IUD removed. 05/2018 NuvaRing. 03/2020. NuvaRing PP. 11/2020. Kyleena - removed Oct 2023. Pt desires Dec 2023: wants to restart nuvaring temporarily Irregular menses (01/16/17) amenorrhea x6mo after stopping OCPs. eventually had return to regular menses prior to beginning DepoProvera. Obesity, Class III, BMI 40-49.9 (morbid obesity) Trichomonas vaginalis (TV) infection 01/2018. Rx for metronidazole given to partner and patient Family History Maternal Grandmother Diabetes Paternal Grandmother Diabetes Paternal Grandfather Diabetes Social History (Updated 11/15/20 @ 13:09 by Yeny Beach MD) Smoking/Tobacco Use Status: Current every day Tobacco Type: e-cigarettes Smoking risk assessment performed?: Yes Alcohol Intake: current Alcohol Intake frequency: holidays/special occasions only Drug use: Never Substance use type: does not use Household members: significant other and other Details: Bf - JJ, Raffi - [place] Housing: other Details: She, BF and daughter sharing trailer with her father. 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 Current gender identity: female Do you feel safe at home: Yes Do you feel safe in your relationship?: Yes Additional Social history: Mother is Dolly Zaidi-Pt of [facility]. Female Reproductive History Menstrual control method: vaginal ring History History 1 Para 1 Hx # Term Pregnancies 1 Multiple births 0 Hx # Pregnancies 0 Ectopic pregnancies 0 AB induced 0 Hx Number of Living Children 1 AB spontaneous 0 Past Pregnancies Del. Date GA/Weeks # Preg Succ Route Wgt Sex Labor Lgth Anesth esia Location Prov [facility] 02/04/20 40 No vaginal 3600.389 g Female [address] Beach
[2025-01-22] MEDS: Acetaminophen 325 MG TAB 650 MG PO (08:07)
[2025-01-22] MEDS: Amoxicillin 875/Clav. 125 TAB PO (08:07)
[2025-01-22] MEDS: Ibuprofen 600 MG TAB PO (08:07)
[2025-01-22 08:15] VITALS: BP 128/72; PULSE 82; RESP 18; O2SAT 98
== END 2025-01-22 08:15 | disposition home or self-care (01) ==
PROVIDERS: Emergency Provider Student in an Organized Health Care Education/Training Program; PCP Physician Assistant Medical
DX: J01.00 Acute maxillary sinusitis, unspecified (principal); R03.0 Elevated blood-pressure reading, without diagnosis of hypertension
CPT/HCPCS: 99283

== ENCOUNTER 2025-06-02 13:33 | Emergency (ER) | payer SELFPAY ==
[2025-06-02 13:51] VITALS: BP 172/71; PULSE 82; RESP 16; TEMP 36.8
--- NOTE | 2025-06-02 14:24 | ED.GENADUL_ITS ---
Discharge Plan Disposition Patient Disposition: Home Condition: Stable Discharge Details Clinical Impression: Back pain, Sciatica of left side Primary Care Provider: Mane Story ED Provider: Katey Clay Home Meds and New Rx's Prescriptions: New lidocaine [Lidoderm] 5 % adhesive patch,medicated 1 patch topical DAILY Qty: 15 0RF Rx Instructions: leave on most painful area for up to 12 hrs cyclobenzaprine 10 mg tablet 10 mg PO TID PRNQty: 14 0RF prednisone 50 mg tablet 50 mg PO DAILY Qty: 5 0RF ibuprofen 600 mg tablet 600 mg PO Q6H PRNQty: 20 0RF No Action amoxicillin-pot clavulanate 875-125 mg tablet 1 tab PO BID Qty: 13 0RF Discharge Instructions Instructions: Low Back Pain ED, Sciatica ED Referrals: [facility] [Provider Group] Clinical Impression: Sciatica of left side; Back pain Discharge Data Discharge Physician: Katey Clay [facility] General Date/Time Provider Initiated Documentation: 06/02/25 13:55 . HPI Narrative: 29-year-old female with history of PCOS and ulcerative colitis presents for evaluation of left lower back pain. Patient states that she has had difficulty with low back pain intermittently for quite some time. 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 The pain did radiate down her leg. She also had an episode earlier with tingling going down her leg when attempting to ambulate. She denies any falls or heavy lifting. No fevers or chills. No loss of bowel or bladder function. No saddle anesthesia. She has not been evaluated by specialist in the past. Denies any increased urinary frequency, dysuria, gross hematuria. No fevers or chills. Related Data Home Medications ?Medication ?Instructions ?Recorded ?Confirmed amoxicillin 875 mg-potassium 1 tab PO BID #13 tabs 06/02/25 clavulanate 125 mg tablet cyclobenzaprine 10 mg tablet 10 mg PO TID PRN #14 tabs 06/02/25 ibuprofen 600 mg tablet 600 mg PO Q6H PRN #20 tabs 0 06/02/25 lidocaine 5 % topical patch 1 patch topical DAILY #15 ea 06/02/25 (Lidoderm) prednisone 50 mg tablet 50 mg PO DAILY #5 tabs 07/29 /25 Previous Rx's ?Medication ?Instructions ?Recorded amoxicillin 875 mg-potassium 1 tab PO BID #13 tabs clavulanate 125 mg tablet cyclobenzaprine 10 mg tablet 10 mg PO TID PRN #14 tabs 06/02/25 ibuprofen 600 mg tablet 600 mg PO Q6H PRN #20 tabs 0 06/02/25 lidocaine 5 % topical patch 1 patch topical DAILY #15 ea 06/02/25 (Lidoderm) prednisone 50 mg tablet 50 mg PO DAILY #5 tabs 06/02 Allergies Allergy/AdvReac Type Severity Reaction Status Date / Time amoxicillin (Amoxicillin) AdvReac Intermediate Diarrhea Verified 06/02/25 13:48 General Stated Complaint: Nk/Back Pain MCKAY: 3 Review of Systems Narrative: Remainder of review of systems otherwise negative except for as noted in the HPI x 5. Exam Narrative Exam Narrative: General: non-toxic, no respiratory distress, comfortable HEENT: normocephalic, atraumatic, lids and lashes normal, PERRL, EOMI, anicteric sclera, no conjunctival injection, moist oral mucosa Musculoskeletal: full range of motion of arms and legs, no tenderness to palpation. no clubbing, cyanosis, or edema Back exam: + Left lumbosacral paraspinal tenderness, no mid-line tenderness, normal strength & sensation, negative SLR's, DTR's 2+ bilaterally Neurologic: appropriate for age, strength normal Psych: alert and oriented Skin: no petechiae, no lesions, warm and dry Course Vital Signs Vital signs: Vital Signs Temperature 36.8 C 06/02/25 13:51 Pulse 82 06/02/25 13:51 Respiratory Rate 16 06/02/25 13:51 Blood Pressure 172/71 H 06/02/25 13:51 Temperature 36.8 C 06/02/25 13:51 Temperature Source Oral 06/02/25 13:51 Pulse 82 06/02/25 13:51 Respiratory Rate 16 06/02/25 13:51 Blood Pressure 172/71 H 06/02/25 13:51 Oxygen Delivery Method Room Air 06/02/25 13:51 Oxygen Flow Rate 0 06/02/25 13:51 Comment wrong entry 06/02/25 13:39 Lab/Test Results Lab/Test Results: POC- Test(urine) Negative Medical Decision Making 29-year-old female with history of PCOS and ulcerative colitis presents for evaluation of lower back pain radiating down her leg today. At time of my evaluation patient does not have any numbness or tingling to the extremities. Patient has no saddle anesthesia, no loss of bowel or bladder control. Patient's history and physical exam are consistent with musculoskeletal back pain. There are no red flags for cauda equina syndrome or infection. We will treat with muscle relaxants and pain control. Patient is to follow up closely with primary care or return to the ED for any worsening symptoms. PFSH All Active Problems (Updated 06/02/25 @ 14:29 by Katey Clay MD) Sciatica of left side (Acute) Back pain (Acute) Tobacco use (Acute) Increased frequency during did not stop completely. 415 2023 cigarette/day Ulcerative colitis (Chronic) Stable with mesalamine. PCOS (polycystic ovarian syndrome) (Chronic) Medical History Contraception (01/16/17) OCPs start 14yo. Changed to Depo till Mirena 01/2017. 01/17/18 Mirena IUD removed. 05/2018 NuvaRing. 03/2020. NuvaRing PP. 11/2020. Kyleena - removed Oct 2023. Pt desires Dec 2023: wants to restart nuvaring temporarily Irregular menses (01/16/17) amenorrhea x6mo after stopping OCPs. eventually had return to regular menses prior to beginning DepoProvera. Obesity, Class III, BMI 40-49.9 (morbid obesity) Trichomonas vaginalis (TV) infection 01/2018. Rx for metronidazole given to partner and patient Family History Maternal Grandmother Diabetes Paternal Grandmother Diabetes Paternal Grandfather Diabetes Social History Smoking/Tobacco Use Status: Current every day Tobacco Type: e-cigarettes Smoking risk assessment performed?: Yes Alcohol Intake: never Drug use: Never Substance use type: does not use Household members: significant other and other Details: Raffi Farias - [place] Housing: other Details: She, BF and daughter sharing trailer with her father. 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 Current gender identity: female Do you feel safe at home: Yes Do you feel safe in your relationship?: Yes Additional Social history: Mother is Dolly Zaidi-Pt of [facility]. Female Reproductive History Menstrual control method: vaginal ring History History 1 Para 1 Hx # Term Pregnancies 1 Multiple births 0 Hx # Pregnancies 0 Ectopic pregnancies 0 AB induced 0 Hx Number of Living Children 1 AB spontaneous 0 Past Pregnancies Del. Date GA/Weeks # Preg Succ Route Wgt Sex Labor Lgth Anesth esia L ocation Prov Complic 02/04/20 40 No vaginal 3600.389 g Female [address] [place]
[2025-06-02 14:41] LABS: Glucose Negative (Negative)
[2025-06-02] MEDS: Lidocaine 5% Patch 1 PATCH TP (14:41)
[2025-06-02] MEDS: Cyclobenzaprine 10 MG TAB PO (14:42)
[2025-06-02] MEDS: predniSONE 10 MG TAB PO (14:42)
[2025-06-02] MEDS: Ibuprofen 600 MG TAB (14:51)
[2025-06-02 14:52] VITALS: BP 123/69; PULSE 81; RESP 18; O2SAT 99
== END 2025-06-02 14:52 | disposition home or self-care (01) ==
PROVIDERS: Emergency Provider Emergency Medicine Emergency Medical Services; PCP Physician Assistant Medical
DX: M54.50 Low back pain, unspecified (principal); M54.32 Sciatica, left side
CPT/HCPCS: 99283 ×2; 81025; 81003; J7512